=== PATIENT | male | born 1965 | race Caucasian/White ===

== ENCOUNTER 2018-03-29 01:19 | Emergency (ER) | payer BC ==
[2018-03-29 01:40] VITALS: RESP 18
[2018-03-29] MEDS ORDERED: AMOXIC-POT CLAV 875MG STARTER 2 EACH TABLET PO STA (01:59)
[2018-03-29] MEDS ORDERED: KETOROLAC 30 MG/ML 1 ML VIAL IM STA (01:59)
[2018-03-29] MEDS ORDERED: LISINOPRIL 10 MG TAB PO STA (02:01)
--- NOTE | 2018-03-29 02:03 | ED ---
ENT HPI - General Chief complaint: ENT Stated complaint: Ear pain Time Seen by Provider: 03/29/18 01:51 Source: patient Mode of arrival: ambulatory Limitations: no limitations - History of Present Illness Initial comments: 52-year-old male patient presents the emergency department today for evaluation of right ear pain. Patient states he has been sick with nasal congestion and sinus pressure for the last week. Patient states that he has been blowing his nose and his ear is been popping. He states that this afternoon he developed severe right ear pain. Patient states that the pain has not gone away. He denies any drainage from the ear. Denies any fevers or chills. Denies any cough. Denies any problems with ear infections in the past. Patient denies any recent rash, shortness breath, chest pain, abdominal pain, nausea, vomiting, diarrhea, constipation, back pain, numbness, tingling, dizziness, weakness, hematuria, dysuria, urinary urgency, urinary frequency, headache, visual changes , or any other complaints. - Related Data Previous Rx's Medication Instructions Recorded Amoxic-Pot Clav 875-125Mg 1 tab PO Q12HR #20 tablet 03/29/18 [Augmentin 875-125] Ibuprofen [Motrin] 600 mg PO Q8HR PRN #30 tab 03/29/18 Lisinopril [Prinivil] 10 mg PO DAILY #30 tab 03/29/18 Allergies Allergy/AdvReac Type Severity Reaction Status Date / Time No Known Allergies Allergy Verified 03/29/18 01:40 Review of Systems ROS Statement: Those systems with pertinent positive or pertinent negative responses have been documented in the HPI. ROS Other: All systems not noted in ROS Statement are negative. Past Medical History Past Medical History: Hyperlipidemia, Hypertension History of Any Multi-Drug Resistant Organisms: None Reported Past Surgical History: No Surgical Hx Reported Past Psychological History: No Psychological Hx Reported Smoking Status: Never smoker Past Alcohol Use History: Occasional Past Drug Use History: None Reported General Exam Limitations: no limitations General appearance: alert, in no apparent distress, other (This is a well- developed, well-nourished adult male patient in no acute distress. Vital signs upon presentation are temperature 98.0F, pulse 98, respirations 18, blood pressure 164/109, pulse ox 97% on room air.) Eye exam: Present: normal appearance, PERRL, EOMI. Absent: scleral icterus, conjunctival injection, periorbital swelling ENT exam: Present: normal exam, normal oropharynx, mucous membranes moist, normal external ear exam, other (No mastoid tenderness). Absent: TM's normal bilaterally (Right tympanic membrane is bulging, erythematous, presence of effusion. Left tympanic membrane is normal.) Neck exam: Present: normal inspection. Absent: tenderness, meningismus, lymphadenopathy Respiratory exam: Present: normal lung sounds bilaterally. Absent: respiratory distress, wheezes, rales, rhonchi, stridor Cardiovascular Exam: Present: regular rate, normal rhythm, normal heart sounds. Absent: systolic murmur, diastolic murmur, rubs, gallop, clicks Neurological exam: Present: alert, oriented X3, CN II-XII intact Psychiatric exam: Present: normal affect, normal mood Skin exam: Present: warm, dry, intact, normal color. Absent: rash Course Vital Signs 03/29/18 03/29/18 01:37 02:38 Temperature 98.0 F 98.1 F Pulse Rate 98 81 Respiratory 18 18 Rate Blood Pressure 164/109 154/94 O2 Sat by Pulse 97 97 Oximetry Medical Decision Making - Medical Decision Making 52-year-old male patient presents the emergency department today for evaluation of right ear pain. Physical examination did reveal a bulging erythematous tympanic membrane with presence of effusion. No mastoid tenderness. No lymphadenopathy. Patient's blood pressure elevated while in the department, states his been out of his blood pressure medication for the last few weeks. He is unsure which medication he took. Patient will be discharged home with diagnosis of right otitis media and hypertension. Be given a prescription for Augmentin and lisinopril. Is instructed to follow-up with his primary care physician for recheck as soon as possible. He is instructed to monitor his blood pressure. Return parameters were discussed in detail. He verbalizes understanding and agrees with this plan. Disposition Clinical Impression: Right otitis media with effusion, Hypertension Disposition: HOME SELF-CARE Condition: Good Instructions: Otitis Media (ED), Hypertension (ED) Additional Instructions: Apply warm compresses to the right ear. Complete antibiotic prescription and full. Use pain medication as directed. Follow-up with your primary care physician for recheck in 1-2 days. Return here immediately for any new, worsening, or concerning symptoms. Prescriptions: Amoxic-Pot Clav 875-125Mg [Augmentin 875-125] 1 tab PO Q12HR #20 tablet Ibuprofen [Motrin] 600 mg PO Q8HR PRN #30 tab PRN Reason: Pain Lisinopril [Prinivil] 10 mg PO DAILY #30 tab Is patient prescribed a controlled substance at d/c from ED?: No Referrals: Jelly Osborne DO [Primary Care Provider] - 1-2 days Time of Disposition: 02:03
[2018-03-29 02:41] VITALS: BP 154/94; PULSE 81; TEMP 98.1
== END 2018-03-29 02:41 | disposition home or self-care (01) ==
LOC: EC 01:19
DX: H65.91 Unspecified nonsuppurative otitis media, right ear (principal); I10 Essential (primary) hypertension
CPT/HCPCS: 99282; 96372; J1885

== ENCOUNTER 2020-12-08 18:27 | Emergency (ER) | payer BC ==
[2020-12-08 18:34] VITALS: RESP 18
[2020-12-08] MEDS ORDERED: ACETAMINOPHEN TAB 500 MG TAB PO STA (20:43)
--- NOTE | 2020-12-08 21:18 | ED ---
General Adult HPI - General Chief complaint: Fever Stated complaint: Fever, SOB, Syncope Time Seen by Provider: 12/08/20 20:43 Source: patient Mode of arrival: wheelchair Limitations: no limitations - History of Present Illness Initial comments: Dictation was produced using [employer] dictation software. please excuse any grammatical, word or spelling errors. This patient was cared for during a federal and state declared state of emergency secondary to Covid 19 Chief Complaint: 55-year-old male presents with fever, body aches, chest co ngestion for 5 days History of Present Illness: 55-year-old male who presents with URI symptoms thiago oing for the last 5 days. He is tested for coronavirus twice. He states that his initial test was negative. He had another test performed however has not got the results were. Patient complaining of 5 days of cough, congestion, shortness of breath. States he also has muscle aches. Patient has history of dyslipidemia and hypertension. He states he does not take any medications for this consult does not need them anymore. The ROS documented in this emergency department record has been reviewed and confirmed by me. Those systems with pertinent positive or negative responses have been documented in the HPI. All other systems are other negative and/or noncontributory. PHYSICAL EXAM: General Impression: Alert and oriented x3, not in acute distress HEENT: Normocephalic atraumatic, extra-ocular movements intact, pupils equal and reactive to light bilaterally, mucous membranes moist. Cardiovascular: Heart regular rate and rhythm Chest: Able to complete full sentences, no retractions, no tachypnea, bilateral breath sounds Abdomen: abdomen soft, non-tender, non-distended, no organomegaly Musculoskeletal: Pulses present and equal in all extremities, no peripheral edema Motor: no focal deficits noted Neurological: CN II-XII grossly intact, no focal motor or sensory deficits noted Skin: Intact with no visualized rashes Psych: Normal affect and mood ED course: 55-year-old male presents with respiratory infectious symptoms. Vital signs upon arrival shows temperature 103.1, heart rate of 102, rest of vital signs within acceptable limits. Laboratory evaluation obtained. CBC, metabolic panel is within acceptable limits. The covid 19 test is positive. Chest x-ray shows bilateral infiltrates. Clinical presentation consistent with Covid 19. Patient is not hypoxic. Patient qualifies for monoclonal antibodies. he consented to monoclonal antibody treatment. Patient given infusion. Tolerated infusion well. Patient observed in emergency department for one hour after infusion with no issues. Patient be discharged. - Related Data Home Medications Medication Instructions Recorded Confirmed Acetaminophen Tab [Tylenol] 650 mg PO Q4H PRN 12/08/20 12/08/20 Allergies Allergy/AdvReac Type Severity Reaction Status Date / Time No Known Allergies Allergy Verified 12/08/20 21:51 Review of Systems ROS Statement: Those systems with pertinent positive or pertinent negative responses have been documented in the HPI. ROS Other: All systems not noted in ROS Statement are negative. Past Medical History Past Medical History: Hyperlipidemia, Hypertension History of Any Multi-Drug Resistant Organisms: None Reported Past Surgical History: No Surgical Hx Reported Past Psychological History: No Psychological Hx Reported Smoking Status: Never smoker Past Alcohol Use History: Occasional Past Drug Use History: None Reported General Exam Limitations: no limitations Course Vital Signs 12/08/20 12/08/20 18:32 23:00 Temperature 103.1 F H 99.0 F Pulse Rate 102 H 88 Respiratory 18 18 Rate Blood Pressure 114/73 115/71 O2 Sat by Pulse 95 97 Oximetry Medical Decision Making - Lab Data Result diagrams: 12/08/20 21:32 12/08/20 21:32 Lab Results 12/08/20 12/08/20 12/08/20 Range/Units 21:06 21:32 21:32 WBC 5.1 (3.8-10.6) k/uL RBC 5.02 (4.30-5.90) m/uL Hgb 15.0 (13.0-17.5) gm/dL Hct 45.1 (39.0-53.0) % MCV 89.9 (80.0-100.0) fL MCH 29.9 (25.0-35.0) pg MCHC 33.3 (31.0-37.0) g/dL RDW 13.5 (11.5-15.5) % Plt Count 188 (150-450) k/uL MPV 7.3 Neutrophils % 85 % Lymphocytes % 8 % Monocytes % 5 % Eosinophils % 1 % Basophils % 0 % Neutrophils # 4.4 (1.3-7.7) k/uL Lymphocytes # 0.4 L (1.0-4.8) k/uL Monocytes # 0.3 (0-1.0) k/uL Eosinophils # 0.0 (0-0.7) k/uL Basophils # 0.0 (0-0.2) k/uL Sodium 132 L (137-145) mmol/L Potassium 4.1 (3.5-5.1) mmol/L Chloride 97 L (98-107) mmol/L Carbon Dioxide 25 (22-30) mmol/L Anion Gap 10 mmol/L BUN 18 (9-20) mg/dL Creatinine 1.06 (0.66-1.25) mg/dL Est GFR (CKD-EPI)AfAm >90 (>60 ml/min/1.73 sqM) Est GFR (CKD-EPI)NonAf 80 (>60 ml/min/1.73 sqM) Glucose 155 H (74-99) mg/dL Calcium 8.6 (8.4-10.2) mg/dL Coronavirus (PCR) Detected A (Not Detectd) Disposition Clinical Impression: COVID-19 Disposition: HOME SELF-CARE Condition: Fair Instructions (If sedation given, give patient instructions): Viral Pneumonia (ED) Additional Instructions: Today you were evaluated for symptoms consistent with upper respiratory infec tion. Today you tested positive for Covid 19. Your are stable for discharge, however it is instructed to to seek immediate medical attention especially if you develop worsening symptoms especially respiratory distress. If possible, try to obtain a pulse oximeter and monitor your oxygen at home. In the meantime please remain in quarantine for 14 days. For any other questions please contact Janelle for here in emergency department or [facility] at [phone] Is patient prescribed a controlled substance at d/c from ED?: No Referrals: Jelly Osborne DO [Primary Care Provider] - 1-2 days Time of Disposition: 22:53
[2020-12-08 21:44] LABS: Basophils % (A) 0 %; Eosinophils % (A) 1 %; HCT 45.1 % (39.0-53.0); Lymphocytes # (A) 0.4 k/uL (1.0-4.8); Lymphocytes % (A) 8 %; MCH 29.9 pg (25.0-35.0); MCHC 33.3 g/dL (31.0-37.0); MCV 89.9 fL (80.0-100.0); Mean Platelet Volume 7.3; Monocytes # (A) 0.3 k/uL (0-1.0); Monocytes % (A) 5 %; Neutrophils # (A) 4.4 k/uL (1.3-7.7); Neutrophils % (A) 85 %; Platelet Count 188 k/uL (150-450); RBC 5.02 m/uL (4.30-5.90); RDW 13.5 % (11.5-15.5); WBC 5.1 k/uL (3.8-10.6)
[2020-12-08 21:48] LABS: African American GFR (CKD) >90 (>60 ml/min/1.73 sqM); Anion Gap 10 mmol/L; Blood Urea Nitrogen 18 mg/dL (9-20); Calcium 8.6 mg/dL (8.4-10.2); Carbon Dioxide 25 mmol/L (22-30); Chloride 97 mmol/L (98-107); Glucose 155 mg/dL (74-99); Non-African American GFR(CKD) 80 (>60 ml/min/1.73 sqM); Potassium 4.1 mmol/L (3.5-5.1); Sodium 132 mmol/L (137-145)
--- NOTE | 2020-12-08 21:50 | XR ---
EXAMINATION TYPE: XR chest 1V portable DATE OF EXAM: 12/08/2020 COMPARISON: NONE HISTORY: Shortness of breath and fever. TECHNIQUE: Single frontal view of the chest is obtained. FINDINGS: There is bilateral moderate perihilar and bibasilar patchy airspace. No pleural effusion, or pneumothorax seen. The cardiac silhouette size is within normal limits. The osseous structures are intact. IMPRESSION: Bilateral infiltrates.
[2020-12-08] MEDS ORDERED: BAMLANIVIMAB 700 MG in SODIUM CHLORIDE 0.9% 50 ML IVPB ONE (22:30)
[2020-12-08 23:02] VITALS: BP 115/71; PULSE 88; TEMP 99
== END 2020-12-09 00:15 | disposition home or self-care (01) ==
LOC: EC 18:27
DX: U07.1 COVID-19 (principal); E78.5 Hyperlipidemia, unspecified; I10 Essential (primary) hypertension
CPT/HCPCS: 36415; 80048; 85025; 87635; 71045; 99285; 96374; Q0239

== ENCOUNTER 2020-12-10 09:30 | Inpatient (IN) | payer BC ==
[2020-12-10] MEDS ORDERED: ALBUTEROL HFA INHALER INHALATION STA (09:59)
[2020-12-10] MEDS ORDERED: ACETAMINOPHEN TAB 500 MG TAB PO STA (09:59)
[2020-12-10] MEDS ORDERED: SODIUM CHLORIDE 0.9% 1,000 ML IV ONE (10:03)
--- NOTE | 2020-12-10 10:08 | ED ---
General Adult HPI - General Chief complaint: Upper Respiratory Infection Stated complaint: COVID+,Fever,SOB Time Seen by Provider: 12/10/20 09:40 Source: patient, RN notes reviewed, old records reviewed Mode of arrival: ambulatory Limitations: no limitations - History of Present Illness Initial comments: Patient's 55-year-old male presents emergency department today for evaluation of shortness of breath, coughing and persistent fever. Patient is Postive with COVID infection on 12/08/2020. He did receive BAM. Patient reports that he has had approximately one week of symptoms. Patient states that there is worsening shortness of breath. He reports poor appetite. - Related Data Home Medications Medication Instructions Recorded Confirmed Acetaminophen Tab [Tylenol] 650 mg PO Q4H PRN 12/08/20 12/10/20 Ibuprofen [Motrin Ib] 400 mg PO Q8H PRN 12/10/20 12/10/20 Allergies Allergy/AdvReac Type Severity Reaction Status Date / Time No Known Allergies Allergy Verified 12/10/20 11:58 Review of Systems ROS Statement: Those systems with pertinent positive or pertinent negative responses have been documented in the HPI. ROS Other: All systems not noted in ROS Statement are negative. Past Medical History Past Medical History: Hyperlipidemia, Hypertension History of Any Multi-Drug Resistant Organisms: None Reported Past Surgical History: No Surgical Hx Reported Past Psychological History: No Psychological Hx Reported Smoking Status: Never smoker Past Alcohol Use History: Occasional Past Drug Use History: None Reported General Exam - General Exam Comments Initial Comments: Weak 55-year-old male. Limitations: no limitations General appearance: alert, in no apparent distress Head exam: Present: atraumatic, normocephalic, normal inspection Eye exam: Present: normal appearance, PERRL, EOMI. Absent: scleral icterus, conjunctival injection, periorbital swelling ENT exam: Present: normal exam, mucous membranes moist Neck exam: Present: normal inspection. Absent: tenderness, meningismus, lymphadenopathy Respiratory exam: Present: decreased breath sounds. Absent: normal lung sounds bilaterally, respiratory distress, wheezes, rales, rhonchi, stridor Cardiovascular Exam: Present: normal rhythm, normal heart sounds. Absent: regular rate, systolic murmur, diastolic murmur, rubs, gallop, clicks GI/Abdominal exam: Present: soft Back exam: Present: normal inspection Neurological exam: Present: alert, oriented X3, CN II-XII intact Psychiatric exam: Present: normal affect, normal mood Skin exam: Present: warm, dry, intact, normal color. Absent: rash Course Vital Signs 12/10/20 12/10/20 12/10/20 09:33 11:00 11:35 Temperature 100.0 F H Pulse Rate 98 78 Respiratory 18 20 Rate Blood Pressure 92/60 97/69 O2 Sat by Pulse 87 L 95 95 Oximetry 12/10/20 12/10/20 12/10/20 12:00 13:00 13:02 Temperature 98.4 F Pulse Rate 70 78 71 Respiratory 21 24 18 Rate Blood Pressure 114/72 121/79 115/77 O2 Sat by Pulse 93 L 95 94 L Oximetry Medical Decision Making - Medical Decision Making This is a 55-year-old male presents today for concern for worsening shortness of breath persistent fever for the past week. He did test positive for cocaine. 19 infection on and received BAM. At this time Patient has hypoxia with oxygen saturation was 87% on room air. He is placed on 5 L of oxygen and is now satting 93%. He does have elevated lactic acid and and d-dimer. His x- ray shows worsening pulmonary infiltrates. Patient was started on IV steroids, started on Lovenox for elevated d-dimer as well as Rocephin for increased pulmonary infiltrates. Patient at this time will be admitted for Covid 19 pneumonia and hypoxia and weakness. Discussed case with Dr. Paulson, whom discussed case with Dr. Pedraza. - Lab Data Result diagrams: 12/10/20 10:13 12/10/20 10:13 Lab Results 12/10/20 12/10/20 12/10/20 Range/Units 10:13 10:13 10:13 WBC 5.4 (3.8-10.6) k/uL RBC 4.96 (4.30-5.90) m/uL Hgb 15.3 (13.0-17.5) gm/dL Hct 44.2 (39.0-53.0) % MCV 89.1 (80.0-100.0) fL MCH 30.9 (25.0-35.0) pg MCHC 34.7 (31.0-37.0) g/dL RDW 13.1 (11.5-15.5) % Plt Count 229 (150-450) k/uL MPV 7.3 Neutrophils % 82 % Lymphocytes % 12 % Monocytes % 4 % Eosinophils % 0 % Basophils % 0 % Neutrophils # 4.4 (1.3-7.7) k/uL Lymphocytes # 0.7 L (1.0-4.8) k/uL Monocytes # 0.2 (0-1.0) k/uL Eosinophils # 0.0 (0-0.7) k/uL Basophils # 0.0 (0-0.2) k/uL PT 9.9 (9.0-12.0) sec INR 0.9 (<1.2) APTT 24.2 (22.0-30.0) sec D-Dimer 2.69 H (<0.60) mg/L FEU Sodium 137 (137-145) mmol/L Potassium 3.8 (3.5-5.1) mmol/L Chloride 101 (98-107) mmol/L Carbon Dioxide 26 (22-30) mmol/L Anion Gap 10 mmol/L BUN 17 (9-20) mg/dL Creatinine 1.16 (0.66-1.25) mg/dL Est GFR (CKD-EPI)AfAm 83 (>60 ml/min/1.73 sqM) Est GFR (CKD-EPI)NonAf 72 (>60 ml/min/1.73 sqM) Glucose 129 H (74-99) mg/dL Plasma Lactic Acid Tan (0.7-2.0) mmol/L Calcium 8.6 (8.4-10.2) mg/dL Magnesium 2.4 H (1.6-2.3) mg/dL Total Bilirubin 0.7 (0.2-1.3) mg/dL AST 81 H (17-59) U/L ALT 34 (4-49) U/L Alkaline Phosphatase 60 (38-126) U/L Lactate Dehydrogenase 1965 H (313-618) U/L C-Reactive Protein 242.5 H (<10.0) mg/L Total Protein 6.5 (6.3-8.2) g/dL Albumin 3.9 (3.5-5.0) g/dL 12/10/20 Range/Units 10:13 WBC (3.8-10.6) k/uL RBC (4.30-5.90) m/uL Hgb (13.0-17.5) gm/dL Hct (39.0-53.0) % MCV (80.0-100.0) fL MCH (25.0-35.0) pg MCHC (31.0-37.0) g/dL RDW (11.5-15.5) % Plt Count (150-450) k/uL MPV Neutrophils % % Lymphocytes % % Monocytes % % Eosinophils % % Basophils % % Neutrophils # (1.3-7.7) k/uL Lymphocytes # (1.0-4.8) k/uL Monocytes # (0-1.0) k/uL Eosinophils # (0-0.7) k/uL Basophils # (0-0.2) k/uL PT (9.0-12.0) sec INR (<1.2) APTT (22.0-30.0) sec D-Dimer (<0.60) mg/L FEU Sodium (137-145) mmol/L Potassium (3.5-5.1) mmol/L Chloride (98-107) mmol/L Carbon Dioxide (22-30) mmol/L Anion Gap mmol/L BUN (9-20) mg/dL Creatinine (0.66-1.25) mg/dL Est GFR (CKD-EPI)AfAm (>60 ml/min/1.73 sqM) Est GFR (CKD-EPI)NonAf (>60 ml/min/1.73 sqM) Glucose (74-99) mg/dL Plasma Lactic Acid Tan 1.2 (0.7-2.0) mmol/L Calcium (8.4-10.2) mg/dL Magnesium (1.6-2.3) mg/dL Total Bilirubin (0.2-1.3) mg/dL AST (17-59) U/L ALT (4-49) U/L Alkaline Phosphatase (38-126) U/L Lactate Dehydrogenase (313-618) U/L C-Reactive Protein (<10.0) mg/L Total Protein (6.3-8.2) g/dL Albumin (3.5-5.0) g/dL - Radiology Data Radiology results: report reviewed Patchy bilateral infiltrates appear to progress in the interval. Findings are compatible with covid 19 pneumonia. Disposition Clinical Impression: COVID-19, Pneumonia, Weakness, Hypoxia Disposition: ADMITTED IP TO THIS HOSP Condition: Stable Is patient prescribed a controlled substance at d/c from ED?: No Referrals: Jelly Osborne DO [Primary Care Provider] - 1-2 days Time of Disposition: 13:12
[2020-12-10] MEDS: SODIUM CHLORIDE 0.9% 1,000 ML IV SCH ×2 (10:19→20:16)
[2020-12-10 10:25] LABS: Basophils % (A) 0 %; Eosinophils % (A) 0 %; HCT 44.2 % (39.0-53.0); HGB 15.3 gm/dL (13.0-17.5); Lymphocytes # (A) 0.7 k/uL (1.0-4.8); Lymphocytes % (A) 12 %; MCH 30.9 pg (25.0-35.0); MCHC 34.7 g/dL (31.0-37.0); MCV 89.1 fL (80.0-100.0); Mean Platelet Volume 7.3; Monocytes # (A) 0.2 k/uL (0-1.0); Monocytes % (A) 4 %; Neutrophils # (A) 4.4 k/uL (1.3-7.7); Neutrophils % (A) 82 %; Platelet Count 229 k/uL (150-450); RBC 4.96 m/uL (4.30-5.90); RDW 13.1 % (11.5-15.5); WBC 5.4 k/uL (3.8-10.6)
--- NOTE | 2020-12-10 10:32 | XR ---
EXAMINATION TYPE: XR chest 1V portable DATE OF EXAM: 12/10/2020 HISTORY: Shortness of breath. COMPARISON: 12/08/2020 TECHNIQUE: Single view of the chest is submitted. FINDINGS: Demonstrated are scattered senescent parenchymal change. Patchy bilateral airspace infiltrates appear to have progressed in the interval. The findings are com patible with Covid 19 pneumonia. The heart is stable. Hilar and mediastinal structures are within normal limits. Degenerative changes are seen of the dorsal spine. IMPRESSION: 1. Patchy bilateral airspace infiltrates appear to have progressed in the interval. The findings are compatible with Covid 19 pneumonia.
[2020-12-10 10:35] LABS: Albumin 3.9 g/dL (3.5-5.0); Calcium 8.6 mg/dL (8.4-10.2); Magnesium 2.4 mg/dL (1.6-2.3); Potassium 3.8 mmol/L (3.5-5.1); Total Bilirubin 0.7 mg/dL (0.2-1.3); Total Protein 6.5 g/dL (6.3-8.2)
[2020-12-10 10:43] LABS: INR 0.9 (<1.2); Partial Thromboplastin Time 24.2 sec (22.0-30.0); Prothrombin Time 9.9 sec (9.0-12.0)
[2020-12-10 10:46] LABS: C Reactive Protein 242.5 mg/L (<10.0)
[2020-12-10 11:08] LABS: D-Dimer 2.69 mg/L FEU (<0.60)
[2020-12-10] MEDS ORDERED: ACETAMINOPHEN TAB 500 MG TAB PO PRN (12:26)
[2020-12-10] MEDS ORDERED: cefTRIAXone IN SWFI 1,000 MG/10 ML SYRINGE IVP STA (12:45)
[2020-12-10] MEDS ORDERED: DEXAMETHASONE SOD PHOSPHATE 10 MG/ML 1 ML VIAL IV STA (13:09)
[2020-12-10] MEDS ORDERED: NALOXONE 0.4 MG/ML 1 ML VIAL IV PRN (13:13)
[2020-12-10] MEDS ORDERED: IBUPROFEN 400 MG TAB PO PRN (13:13)
[2020-12-10] MEDS ORDERED: ONDANSETRON 4 MG/2 ML VIAL IVP PRN (13:13)
[2020-12-10] MEDS ORDERED: ACETAMINOPHEN TAB 325 MG TAB PO PRN (13:13)
[2020-12-10] MEDS: DEXAMETHASONE SOD PHOSPHATE 10 MG/ML 1 ML VIAL IV SCH (13:41)
[2020-12-10] MEDS: ENOXAPARIN 40 MG/0.4 ML SYRINGE SQ SCH (13:42)
--- NOTE | 2020-12-10 13:59 | CT ---
EXAMINATION TYPE: CT chest angio for PE DATE OF EXAM: 12/10/2020 COMPARISON: None HISTORY: COVID, not improved from last week, cough CT DLP: 319.9 mGycm CONTRAST: CT chest with contrast and 3D reconstruction with MIP imaging is performed with IV Contrast, patient injected with 100 mL of Isovue 370. Contrast-enhanced CT of the chest was performed through the course of the pulmonary arteries with aaliyah g and mediastinal window settings submitted. 3D reconstruction with MIP imaging was also performed. PULMONARY ARTERIES: The pulmonary arteries and their major tributaries are patent. I do not see vee dence for sizable filling defect to suggest pulmonary embolic process. LUNGS: Moderate to severe bilateral airspace disease. No evidence for atelectasis. No pulmonary nod ule or mass is detected. No pleural effusion. MEDIASTINUM: Thoracic aorta is of normal caliber,however, evaluation is limited given timing of the contrast bolus. If there is concern for thoracic aortic pathology consider KEITH. Correlate clinicall y . The heart is not enlarged. No evidence for mediastinal mass. No mediastinal lymph nodes greater than 1cm. HILAR STRUCTURES: No evidence for mass. No hilar lymph nodes greater than 1 cm. UPPER ABDOMEN: No significant abnormality is seen. IMPRESSION: 1. No evidence for Pulmonary embolism at this time. 2. oderate to severe bilateral airspace disease.
--- NOTE | 2020-12-10 15:08 | P.CNPUL ---
History of Present Illness Consult date: 12/10/20 Reason for consult: dyspnea, pneumonia History of present illness: 55-year-old male patient was hospitalized for COVID 19 related pneumonia. The patient started getting symptoms approximately a week ago, exactly last Saturday when he started having some body aches and tiredness and some shortness of breath. He came in to the emergency department on 12/08/2020 and he tested positive for occult at 19 and the patient was given monoclonal antibodies and he was discharged home. His condition progressively got more short of breath and he came into the emergency today he was hypoxic and currently is on 4 L about 2 by nasal cannula. He CAT scan of the chest was done and shows diffuse bilateral pulmonary consolidation consistent with COVID 19 related pneumonia. He is having cough. His shortness of breath. No altered mentation. No nausea or vomiting. Inflammatory markers revealed an LDH level 1965 and the patient's CRP is 242 and a d-dimer is at 2.6. CBC shows lymphopenia. Otherwise no other major abnormalities noted. For now, the patient is started on steroids. No other medical problems and comorbidities other than hypertension. Slightly obese and the BMI is 35.4. Review of Systems Constitutional: Reports fatigue, Reports fever, Reports weakness Eyes: denies as per HPI, denies blurred vision, denies bulging eye, denies decreased vision, denies diplopia, denies discharge, denies dry eye, denies irritation, denies itching, denies pain, denies photophobia, denies loss of peripheral vision, denies loss of vision, denies tunnel vision/blind spots Ears: deny: decreased hearing, ear discharge, earache, tinnitus Ears, nose, mouth and throat: Reports as per HPI Breasts: absent: as per HPI, gynecomastia Cardiovascular: Reports decreased exercise tolerance, Reports dyspnea on exertion Respiratory: Reports cough, Reports dyspnea Gastrointestinal: Reports as per HPI Genitourinary: Reports as per HPI Musculoskeletal: Reports as per HPI Musculoskeletal: absent: ankle pain, ankle stiffness, ankle swelling, as per HPI, elbow pain, elbow stiffness, elbow swelling, foot pain, foot stiffness, foot swelling, hand pain, hand stiffness, hand swelling, hip pain, hip stiffness, hip swelling, knee pain, knee stiffness, knee swelling, shoulder pain, shoulder stiffness, shoulder swelling, wrist pain, wrist stiffness, wrist swelling Integumentary: Reports as per HPI Neurological: Reports as per HPI, Reports weakness Psychiatric: Reports as per HPI Endocrine: Reports as per HPI, Reports fatigue Hematologic/Lymphatic: Reports as per HPI Allergic/Immunologic: Reports as per HPI Past Medical History Past Medical History: Hyperlipidemia, Hypertension History of Any Multi-Drug Resistant Organisms: None Reported Past Surgical History: No Surgical Hx Reported Past Psychological History: No Psychological Hx Reported Smoking Status: Never smoker Past Alcohol Use History: Occasional Past Drug Use History: None Reported Medications and Allergies Home Medications Medication Instructions Recorded Confirmed Type Acetaminophen Tab [Tylenol] 650 mg PO Q4H PRN 12/08/20 12/10/20 History Ibuprofen [Motrin Ib] 400 mg PO Q8H PRN 12/10/20 12/10/20 History Allergies Allergy/AdvReac Type Severity Reaction Status Date / Time No Known Allergies Allergy Verified 12/10/20 11:58 Physical Exam Vitals: Vital Signs Temp Pulse Resp BP Pulse Ox 12/10/20 14:00 98.6 F 74 22 115/77 94 L 12/10/20 13:02 98.4 F 71 18 115/77 94 L 12/10/20 13:00 78 24 121/79 95 12/10/20 12:00 70 21 114/72 93 L 12/10/20 11:35 95 12/10/20 11:00 78 20 97/69 95 12/10/20 09:33 100.0 F H 98 18 92/60 87 L Intake and Output 12/10/20 12/10/20 12/10/20 06:59 14:59 22:59 Other: Weight 90.718 kg The patient appeared well nourished and normally developed. Vital signs as documented. Head exam is unremarkable. No scleral icterus or corneal arcus noted. Neck is without jugular venous distension, thyromegaly, or carotid bruits. Carotid upstrokes are brisk bilaterally. Lungs diminished breath sound a long with extensive crackles in the mid and lower lung nguyen bilaterally. The patient is unable to do deep inspiration as his breathing gets interrupted by cough and. Cardiac exam reveals the PMI to be normally sized and situated. Rhythm is regular. First and second heart sounds normal. No murmurs, rubs or gallops. Abdominal exam reveals normal bowel sounds, no masses, no organomegaly and no aortic enlargement. Extremities are nonedematous and both femoral and pedal pulses are normal.Examination of the skin revealed no evidence of significant rashes, suspicious appearing nevi or other concerning lesions.Neurologically, the patient is awake and alert and the patient does not have any focal neurological deficit. Cranial nerves are essentially intact. Results - Laboratory Findings CBC and BMP: 12/10/20 10:13 12/10/20 10:13 PT/INR, D-dimer PT 9.9 sec (9.0-12.0) 12/10/20 10:13 INR 0.9 (<1.2) 12/10/20 10:13 D-Dimer 2.69 mg/L FEU (<0.60) H 12/10/20 10:13 Abnormal lab findings: Abnormal Labs 12/10/20 12/10/20 12/10/20 10:13 10:13 10:13 Lymphocytes # 0.7 L D-Dimer 2.69 H Glucose 129 H Magnesium 2.4 H AST 81 H Lactate Dehydrogenase 1965 H C-Reactive Protein 242.5 H - Diagnostic Findings Chest x-ray: image reviewed CT scan - chest: image reviewed Assessment and Plan Plan: 1 acute COVID 19 related pneumonia. The patient came symptomatic approximately one week ago. His symptoms started on 12/04/2020. He was diagnosed having infection on 12/08/2020 and he was seen in emergency where he was given monoclonal anti-bodies and he was discharged home. Within 2 days, his condition decompensated and he presented with worsening shortness of breath 2 acute hypoxic respiratory failure currently on 4 L approximately nasal cannula 3 shortness of breath secondary to above 4 elevated inflammatory markers secondary to above 5 lymphopenia secondary to above 6 hypertension Plan Keep the patient on oxygen 4 L per nasal cannula and titrate accordingly to maintain a saturation above 90% Decadron 6 mg by mouth daily Initiate Remdesivir per protocol for a total of 5 days Lovenox 40 mg subcu for DVT prophylaxis Vitamin C and vitamin D and zinc Will hospitalize the patient will continue to monitor his progress over the next few days.
[2020-12-10] MEDS: CHOLECALCIFEROL 25 MCG (1000 IU) TABLET PO SCH (15:49)
[2020-12-10] MEDS: ZINC SULFATE 220 MG CAP PO SCH (15:49)
[2020-12-10] MEDS ORDERED: REMDESIVIR 200 MG in SODIUM CHLORIDE 0.9% 250 ML IVPB ONE (16:00)
[2020-12-10 20:03] LABS: Ferritin 2518.5 ng/mL (22.0-322.0)
--- NOTE | 2020-12-10 23:34 | P.HPIM ---
History of Present Illness H&P Date: 12/10/20 Chief Complaint: COVID PNEUMONIA Mr. Clements is a 55-year-old male with a past medical history of hypertension, hyperlipidemia coming into the hospital with a chief complaint of shortness of breath cough and persistent fevers. Patient had been in the emergency [facility] on 12/08/2020 for URI-like symptoms and he was tested positive for coronavirus twice. He had a chest x-ray showing bilateral infiltrates and he was not hypoxic so he received monoclonal antibodies and discharged home. But patient had persistent fevers along with sweating that progressively worsening he also became extremely short of breath. In the ED at the time of admission he was found to have a fever of 100.0, heart rate 98, blood pressure 92/60 and saturating at 87% on room air. So the patient was admitted for further management. On reviewing his labs patient was found to have white count of 5.4 with lymphopenia and D-dimer of 2.69 and elevated ferritin 2518, LDH 1965, CRP 242. Review of Systems REVIEW OF SYSTEMS: CONSTITUTIONAL: As per HPI HEENT: No recent visual problems or hearing problems. Denied any sore throat. CARDIOVASCULAR: No chest pain, orthopnea, PND, no palpitations, no syncope. PULMONARY: As per HPI GASTROINTESTINAL: No diarrhea, no nausea, no vomiting, no abdominal pain. NEUROLOGICAL: Mild headaches, no weakness, no numbness. HEMATOLOGICAL: Denies any bleeding or petechiae. GENITOURINARY: Denies any burning micturition, frequency, or urgency. MUSCULOSKELETAL/RHEUMATOLOGICAL: As per HPI. ENDOCRINE: Denies any polyuria or polydipsia. The rest of the 14-point review of systems is negative Past Medical History Past Medical History: Hyperlipidemia, Hypertension History of Any Multi-Drug Resistant Organisms: None Reported Past Surgical History: No Surgical Hx Reported Past Psychological History: No Psychological Hx Reported Smoking Status: Never smoker Past Alcohol Use History: Occasional Past Drug Use History: None Reported - Past Family History Father Family Medical History: Cancer, Myocardial Infarction (CT) Mother Additional Family Medical History / Comment(s): emphysema Medications and Allergies Home Medications Medication Instructions Recorded Confirmed Type Acetaminophen Tab [Tylenol] 650 mg PO Q4H PRN 12/08/20 12/10/20 History Ibuprofen [Motrin Ib] 400 mg PO Q8H PRN 12/10/20 12/10/20 History Allergies Allergy/AdvReac Type Severity Reaction Status Date / Time No Known Allergies Allergy Verified 12/10/20 11:58 Physical Exam Vitals: Vital Signs Temp Pulse Resp BP Pulse Ox 12/10/20 17:24 98 F 12/10/20 17:00 98 27 H 124/80 95 12/10/20 16:00 82 25 H 117/80 94 L 12/10/20 15:00 81 27 H 121/81 94 L 12/10/20 14:00 98.6 F 74 22 115/77 94 L 12/10/20 13:02 98.4 F 71 18 115/77 94 L 12/10/20 13:00 78 24 121/79 95 12/10/20 12:00 70 21 114/72 93 L 12/10/20 11:35 95 12/10/20 11:00 78 20 97/69 95 12/10/20 09:33 100.0 F H 98 18 92/60 87 L Intake and Output 12/10/20 12/10/20 12/10/20 06:59 14:59 22:59 Other: Weight 90.718 kg PHYSICAL EXAMINATION: GENERAL: The patient is alert and oriented x3, not in any acute distress. Ill appearing, sweating HEENT: Pupils are round and equally reacting to light. EOMI. No scleral icterus. No conjunctival pallor. CARDIOVASCULAR: S1 and S2 present. Tachycardia PULMONARY: Bilatral coarse breath sounds ABDOMEN: Soft, nontender, nondistended, normoactive bowel sounds. No palpable organomegaly. MUSCULOSKELETAL: No joint swelling or deformities EXTREMITIES: No cyanosis, clubbing. No pedal edema NEUROLOGICAL: Gross neurological examination did not reveal any focal deficits. SKIN: No rashes. Results CBC & Chem 7: 12/10/20 10:13 12/10/20 10:13 Labs: Abnormal Lab Results - Last 24 Hours (Table) 12/10/20 12/10/20 12/10/20 Range/Units 10:13 10:13 10:13 Lymphocytes # 0.7 L (1.0-4.8) k/uL D-Dimer 2.69 H (<0.60) mg/L FEU Glucose 129 H (74-99) mg/dL Magnesium 2.4 H (1.6-2.3) mg/dL AST 81 H (17-59) U/L Lactate Dehydrogenase 1965 H (313-618) U/L C-Reactive Protein 242.5 H (<10.0) mg/L Assessment and Plan Assessment: ASSESSMENT Acute hypoxic respiratory failure secondary to Covid pneumonia Lymphopenia Elevated inflammatory markers Hypertension Hyperlipidemia Obesity with BMI of 35.4 PLAN: Patient has been started on remdesivir. Patient will be continued on Decadron, Lovenox for DVT prophylaxis, zinc and vitamin D supplements. Patient encouraged to do incentive spirometry. Protonix for GI prophylaxis. Further recommendations to follow depending on the progress of the patient.
[2020-12-11] MEDS: SODIUM CHLORIDE 0.9% 1,000 ML IV SCH ×2 (04:42→16:41)
--- NOTE | 2020-12-11 07:42 | XR ---
EXAMINATION TYPE: XR chest 1V portable DATE OF EXAM: 12/11/2020 HISTORY: Shortness of breath. COMPARISON: 12/10/2020 TECHNIQUE: Single view of the chest is submitted. FINDINGS: Scattered areas of patchy infiltrate left perihilar, right midlung zone and right lung base persists. No change appreciated. The heart is stable. Hilar and mediastinal structures are within normal limits. Degenerative changes are seen of the dorsal spine. IMPRESSION: 1. Scattered areas of patchy infiltrate left perihilar, right midlung zone and right lung base persi sts. No change appreciated.
[2020-12-11 08:44] LABS: C Reactive Protein 182.2 mg/L (<10.0)
[2020-12-11] MEDS ORDERED: PANTOPRAZOLE 40 MG/10 ML VIAL IV SCH (09:00)
[2020-12-11] MEDS: ENOXAPARIN 40 MG/0.4 ML SYRINGE SQ SCH (09:09)
[2020-12-11] MEDS: CHOLECALCIFEROL 25 MCG (1000 IU) TABLET PO SCH (09:09)
[2020-12-11] MEDS: ZINC SULFATE 220 MG CAP PO SCH (09:09)
[2020-12-11] MEDS: DEXAMETHASONE SOD PHOSPHATE 10 MG/ML 1 ML VIAL IV SCH (09:09)
[2020-12-11] MEDS: ASCORBIC ACID 500 MG TAB PO SCH (09:09)
--- NOTE | 2020-12-11 12:45 | P.PN ---
Subjective Progress Note Date: 12/11/20 55-year-old male patient was hospitalized for COVID 19 related pneumonia. The patient started getting symptoms approximately a week ago, exactly last Saturday when he started having some body aches and tiredness and some shortness of breath. He came in to the emergency department on 12/08/2020 and he tested positive for occult at 19 and the patient was given monoclonal antibodies and he was discharged home. His condition progressively got more short of breath and he came into the emergency today he was hypoxic and currently is on 4 L about 2 by nasal cannula. He CAT scan of the chest was done and shows diffuse bilateral pulmonary consolidation consistent with COVID 19 related pneumonia. He is having cough. His shortness of breath. No altered mentation. No nausea or vomiting. Inflammatory markers revealed an LDH level 1965 and the patient's CRP is 242 and a d-dimer is at 2.6. CBC shows lymphopenia. Otherwise no other major abnormalities noted. For now, the patient is started on steroids. No other medical problems and comorbidities other than hypertension. Slightly obese and the BMI is 35.4. Today's evaluation of 12/11/2020, the patient is being seen for a follow-up. He is still feeling sick and miserable. Note that the patient had to be admitted yesterday because of worsening shortness of breath and he still on 4 L of oxygen by nasal cannula with a pulse of 91%. He failed convalescent plasma treatment. He is currently on Decadron. He is on day 2 of Humberto. His blood work is showing a d-dimer of 1.6 and the patient on Lovenox 40 mg subcu on a daily basis. His LDH level is improving and is currently down to 1551 and a CRP level is also improving is currently down to 182. Surprisingly the pro-calcitonin level is elevated. He is afebrile. There follow-up chest x-ray was done today and I reviewed it and there is patchy scattered bilateral pulmonary infiltrates in the mid and the upper lung zones without any significant interval change. Objective - Vital Signs Vital signs: Vital Signs Temp 97.8 F 12/11/20 09:31 Pulse 85 12/11/20 09:31 Resp 20 12/11/20 09:31 BP 130/87 12/11/20 09:31 Pulse Ox 91 L 12/11/20 09:31 Intake & Output 12/10/20 12/11/20 12/11/20 18:59 06:59 18:59 Intake Total 1500 Balance 1500 Weight 90.718 kg Intake: Intake, IV Titration 1200 Amount Sodium Chloride 0.9% 1, 1200 000 ml @ 100 mls/hr IV . Q10H [facility] Rx#:[id number] Oral 300 Other: # Voids 2 - Exam The patient appeared well nourished and normally developed. Vital signs as d ocumented. Head exam is unremarkable. No scleral icterus or corneal arcus noted. Neck is without jugular venous distension, thyromegaly, or carotid bruits. Carotid upstrokes are brisk bilaterally. Lungs diminished breath sound along with extensive crackles in the mid and lower lung nguyen bilaterally. The patient is unable to do deep inspiration as his breathing gets interrupted by cough and. Cardiac exam reveals the PMI to be normally sized and situated. Rhythm is regular. First and second heart sounds normal. No murmurs, rubs or gallops. Abdominal exam reveals normal bowel sounds, no masses, no organomegaly and no aortic enlargement. Extremities are nonedematous and both femoral and pedal pulses are normal.Examination of the skin revealed no evidence of significant rashes, suspicious appearing nevi or other concerning lesions.Neurologically, the patient is awake and alert and the patient does not have any focal neurological deficit. Cranial nerves are essentially intact. - Labs CBC & Chem 7: 12/10/20 10:13 12/10/20 10:13 Labs: Abnormal Lab Results - Last 24 Hours (Table) 12/10/20 12/10/20 12/11/20 Range/Units 10:13 10:13 07:43 D-Dimer 1.62 H (<0.60) mg/L FEU Ferritin 2518.5 H (22.0-322.0) ng/mL Lactate Dehydrogenase (313-618) U/L C-Reactive Protein (<10.0) mg/L Procalcitonin 2.04 H (0.02-0.09) ng/mL 12/11/20 Range/Units 07:43 D-Dimer (<0.60) mg/L FEU Ferritin (22.0-322.0) ng/mL Lactate Dehydrogenase 1551 H (313-618) U/L C-Reactive Protein 182.2 H (<10.0) mg/L Procalcitonin (0.02-0.09) ng/mL Microbiology - Last 24 Hours (Table) 12/10/20 10:13 Blood Culture - Preliminary Blood No Growth after 24 hours 12/10/20 10:13 Blood Culture - Preliminary Blood No Growth after 24 hours Assessment and Plan Plan: 1 acute COVID 19 related pneumonia. The patient came symptomatic approximately one week ago. His symptoms started on 12/04/2020. He was diagnosed having infection on 12/08/2020 and he was seen in emergency where he was given monoclonal anti-bodies and he was discharged home. Within 2 days, his condition decompensated and he presented with worsening shortness of breath On today's evaluation, the patient is still on 4 L of oxygen by nasal cannula. The patient is still feeling sick and miserable and shortness of breath. He remains on Decadron. He is on REM day #2 2 acute hypoxic respiratory failure currently on 4 L approximately nasal cannula 3 shortness of breath secondary to above 4 elevated inflammatory markers secondary to above 5 lymphopenia secondary to above 6 hypertension Plan Keep the patient on oxygen 4 L per nasal cannula and titrate accordingly to maintain a saturation above 90% Decadron 6 mg by mouth daily Remdesivir per protocol for a total of 5 days currently on day #2 Lovenox 40 mg subcu for DVT prophylaxis Vitamin C and vitamin D and zinc Inflammatory markers are improving D-dimer is mildly elevated Chest x-ray from today stable We'll continue to follow.
[2020-12-11] MEDS: ALBUTEROL HFA INHALER INHALATION PRN (15:39)
[2020-12-11] MEDS: REMDESIVIR 100 MG in SODIUM CHLORIDE 0.9% 250 ML IVPB SCH (16:41)
--- NOTE | 2020-12-11 18:24 | P.PN ---
Subjective Progress Note Date: 12/11/20 Principal diagnosis: COVID pneumonia Mr. Clements is a 55-year-old male with a past medical history of hypertension, hyperlipidemia coming into the hospital with a chief complaint of shortness of breath cough and persistent fevers. Patient had been in the emergency [facility] on 12/08/2020 for URI-like symptoms and he was tested positive for coronavirus twice. He had a chest x-ray showing bilateral infiltrates and he was not hypoxic so he received monoclonal antibodies and discharged home. But patient had persistent fevers along with sweating that progressively worsening he also became extremely short of breath. In the ED at the time of admission he was found to have a fever of 100.0, heart rate 98, blood pressure 92/60 and saturating at 87% on room air. So the patient was admitted for further management. On reviewing his labs patient was found to have white count of 5.4 with lymphopenia and D-dimer of 2.69 and elevated ferritin 2518, LDH 1965, CRP 242. On 12/12/2019- patient is seen and examined at bedside. He states that he still continues to have exertional dyspnea. He is requiring 4-7 L of oxygen to maintain sats above 90%. Patient denies having any fevers chills or rigors. He complains of generalized weakness and fatigue. Denies having any chest pain or palpitations. No abdominal pain nausea vomiting or diarrhea. No dysuria or hematuria. On reviewing her vitals T-max of 98.6, heart rate in 80s, blood pressure 146/78. Reviewing his labs from this morning showing d-dimer of 1.62, LDH 1551, CRP 182.2. Active Medications Acetaminophen (Acetaminophen Tab 500 Mg Tab) 1,000 mg PO Q6HR PRN PRN Reason: Fever>101 Acetaminophen (Acetaminophen Tab 325 Mg Tab) 650 mg PO Q6HR PRN PRN Reason: Mild Pain or Fever > 100.5 Albuterol Sulfate (Albuterol Hfa Inhaler) 2 puff INHALATION RT-Q6H PRN PRN Reason: Shortness Of Breath Or Wheezing Last Admin: 12/11/20 15:39 Dose: 2 puff Documented by: Ascorbic Acid (Ascorbic Acid 500 Mg Tab) 1,000 mg PO DAILY [facility]ERSON Last Admin: 12/11/20 09:09 Dose: 1,000 mg Documented by: Cholecalciferol (Cholecalciferol 25 Mcg (1000 Iu) Tablet) 25 mcg PO DAILY [facility] Last Admin: 12/11/20 09:09 Dose: 25 mcg Documented by: Dexamethasone Sodium Phosphate (Dexamethasone Sod Phosphate 10 Mg/Ml 1 Ml Vial) 6 mg IV DAILY [facility] Stop: 12/20/20 09:01 Last Admin: 12/11/20 09:09 Dose: 6 mg Documented by: Enoxaparin Sodium (Enoxaparin 40 Mg/0.4 Ml Syringe) 40 mg SQ Q24HR [facility] Last Admin: 12/11/20 09:09 Dose: 40 mg Documented by: Sodium Chloride (Saline 0.9%) 1,000 mls @ 100 mls/hr IV .Q10H [facility] Last Admin: 12/11/20 16:41 Dose: 100 mls/hr Documented by: Remdesivir 100 mg/ Sodium (Chloride) 250 mls @ 250 mls/hr IVPB DAILY@1600 [facility] Stop: 12/14/20 16:59 Last Admin: 12/11/20 16:41 Dose: 250 mls/hr Documented by: Ibuprofen (Ibuprofen 400 Mg Tab) 400 mg PO Q6HR PRN PRN Reason: Mild Pain or Fever > 100.5 Naloxone HCl (Naloxone 0.4 Mg/Ml 1 Ml Vial) 0.2 mg IV Q2M PRN PRN Reason: Opioid Reversal Ondansetron HCl (Ondansetron 4 Mg/2 Ml Vial) 4 mg IVP Q8HR PRN PRN Reason: Nausea And Vomiting Pantoprazole Sodium (Pantoprazole 40 Mg Tablet) 40 mg PO [id number] [facility] Zinc Sulfate (Zinc Sulfate 220 Mg Cap) 220 mg PO DAILY [facility] Last Admin: 12/11/20 09:09 Dose: 220 mg Documented by: Objective - Vital Signs Vital signs: Vital Signs Temp 97.8 F 12/11/20 14:07 Pulse 84 12/11/20 14:07 Resp 20 12/11/20 14:07 BP 136/74 12/11/20 14:07 Pulse Ox 88 L 12/11/20 14:07 Intake & Output 12/10/20 12/11/20 12/11/20 18:59 06:59 18:59 Intake Total 1500 Balance 1500 Weight 90.718 kg Intake: Intake, IV Titration 1200 Amount Sodium Chloride 0.9% 1, 1200 000 ml @ 100 mls/hr IV . Q10H [facility] Rx#:[id number] Oral 300 Other: # Voids 2 3 # Bowel Movements 1 - Exam PHYSICAL EXAMINATION: GENERAL: The patient is alert and oriented x3, not in any acute distress. On 6 L of nasal cannula saturating at 90% HEENT: Pupils are round and equally reacting to light. EOMI. No scleral icterus. No conjunctival pallor. CARDIOVASCULAR: S1 and S2 present. PULMONARY: Bilatral coarse breath sounds ABDOMEN: Soft, nontender, nondistended, normoactive bowel sounds. No palpable organomegaly. MUSCULOSKELETAL: No joint swelling or deformities EXTREMITIES: No cyanosis, clubbing. No pedal edema NEUROLOGICAL: Gross neurological examination did not reveal any focal deficits. SKIN: No rashes. - Labs CBC & Chem 7: 12/10/20 10:13 12/10/20 10:13 Labs: Abnormal Lab Results - Last 24 Hours (Table) 12/10/20 12/10/20 12/11/20 Range/Units 10:13 10:13 07:43 D-Dimer 1.62 H (<0.60) mg/L FEU Ferritin 2518.5 H (22.0-322.0) ng/mL Lactate Dehydrogenase (313-618) U/L C-Reactive Protein (<10.0) mg/L Procalcitonin 2.04 H (0.02-0.09) ng/mL 12/11/20 Range/Units 07:43 D-Dimer (<0.60) mg/L FEU Ferritin (22.0-322.0) ng/mL Lactate Dehydrogenase 1551 H (313-618) U/L C-Reactive Protein 182.2 H (<10.0) mg/L Procalcitonin (0.02-0.09) ng/mL Microbiology - Last 24 Hours (Table) 12/10/20 10:13 Blood Culture - Preliminary Blood No Growth after 24 hours 12/10/20 10:13 Blood Culture - Preliminary Blood No Growth after 24 hours Assessment and Plan Assessment: ASSESSMENT Acute hypoxic respiratory failure secondary to Covid pneumonia - worsening Lymphopenia Elevated inflammatory markers Hypertension Hyperlipidemia Obesity with BMI of 35.4 PLAN: Patient has been started on remdesivir day # 2 today. Patient will be continued on Decadron, Lovenox for DVT prophylaxis, zinc and vitamin D supplements. Patient encouraged to do incentive spirometry. Protonix for GI prophylaxis. We will continue to monitor inflammatory markers and chest x-ray. Further recommendations to follow depending on the progress of the patient.
[2020-12-12] MEDS: SODIUM CHLORIDE 0.9% 1,000 ML IV SCH ×3 (03:09→20:51)
[2020-12-12] MEDS: DEXAMETHASONE SOD PHOSPHATE 10 MG/ML 1 ML VIAL IV SCH (09:33)
[2020-12-12] MEDS: CHOLECALCIFEROL 25 MCG (1000 IU) TABLET PO SCH (09:33)
[2020-12-12] MEDS: ZINC SULFATE 220 MG CAP PO SCH (09:33)
[2020-12-12] MEDS: PANTOPRAZOLE 40 MG TABLET PO SCH (09:33)
[2020-12-12] MEDS: ASCORBIC ACID 500 MG TAB PO SCH (09:33)
[2020-12-12] MEDS: ENOXAPARIN 40 MG/0.4 ML SYRINGE SQ SCH (09:34)
[2020-12-12] MEDS: ALBUTEROL HFA INHALER INHALATION PRN ×2 (12:28→21:17)
[2020-12-12 12:57] LABS: C Reactive Protein 8.2 mg/dL (0.0-0.8)
--- NOTE | 2020-12-12 14:11 | P.PN ---
Subjective COVID pneumonia Mr. Clements is a 55-year-old male with a past medical history of hypertension, hyperlipidemia coming into the hospital with a chief complaint of shortness of breath cough and persistent fevers. Patient had been in the emergency department on 12/08/2020 for URI-like symptoms and he was tested positive for coronavirus twice. He had a chest x-ray showing bilateral infiltrates and he was not hypoxic so he received monoclonal antibodies and discharged home. But patient had persistent fevers along with sweating that progressively worsening he also became extremely short of breath. In the ED at the time of admission he was found to have a fever of 100.0, heart rate 98, blood pressure 92/60 and saturating at 87% on room air. So the patient was admitted for further management. On reviewing his labs patient was found to have white count of 5.4 with lymphopenia and D-dimer of 2.69 and elevated ferritin 2518, LDH 1965, CRP 242. On 12/12/2019- patient is seen and examined at bedside. He states that he still continues to have exertional dyspnea. He is requiring 4-7 L of oxygen to maintain sats above 90%. Patient denies having any fevers chills or rigors. He complains of generalized weakness and fatigue. Denies having any chest pain or palpitations. No abdominal pain nausea vomiting or diarrhea. No dysuria or hematuria. On reviewing her vitals T-max of 98.6, heart rate in 80s, blood pr essure 146/78. Reviewing his labs from this morning showing d-dimer of 1.62, LDH 1551, CRP 182.2. 12/12/2020 Issue remains on 9 L of oxygen patient is presently on Decadron and day 3 of Remdesivir. Patient is feeling better yet. Constitutional: Denied any fatigue denied any fever. Cardio vascular: denied any chest pain, palpitations Gastrointestinal denied any nausea vomiting Pulmonary: Denied any shortness of breath cough Neurologic denied any new focal deficits All inpatient medications were reviewed and appropriate changes in these medications as dictated in the interval history and assessment and plan. Objective - Vital Signs Vital signs: Vital Signs Temp 97.4 F L 12/12/20 10:00 Pulse 77 12/12/20 10:00 Resp 16 12/12/20 10:00 BP 155/85 12/12/20 10:00 Pulse Ox 94 L 12/12/20 10:00 Intake & Output 12/11/20 12/12/20 12/12/20 18:59 06:59 18:59 Intake Total 1800 Balance 1800 Intake: Intake, IV Titration 1200 Amount Sodium Chloride 0.9% 1, 1200 000 ml @ 100 mls/hr IV . Q10H PETERSON Rx#:[id number] Oral 600 Other: # Voids 3 4 1 # Bowel Movements 1 1 - Exam PHYSICAL EXAMINATION: GENERAL: The patient is alert and oriented x3, not in any acute distress. On 9 L of nasal cannula saturating at 90% HEENT: Pupils are round and equally reacting to light. EOMI. No scleral icterus. No conjunctival pallor. CARDIOVASCULAR: S1 and S2 present. PULMONARY: Bilatral coarse breath sounds ABDOMEN: Soft, nontender, nondistended, normoactive bowel sounds. No palpable organomegaly. MUSCULOSKELETAL: No joint swelling or deformities EXTREMITIES: No cyanosis, clubbing. No pedal edema NEUROLOGICAL: Gross neurological examination did not reveal any focal deficits. SKIN: No rashes. - Labs CBC & Chem 7: 12/10/20 10:13 12/10/20 10:13 Labs: Abnormal Lab Results - Last 24 Hours (Table) 12/12/20 12/12/20 12/12/20 Range/Units 06:21 06:21 06:21 D-Dimer 2.27 H (<0.60) mg/L FEU Lactate Dehydrogenase 592 H (120-246) U/L C-Reactive Protein 8.2 H (0.0-0.8) mg/dL Procalcitonin 0.67 H (0.02-0.09) ng/mL Microbiology - Last 24 Hours (Table) 12/10/20 10:13 Blood Culture - Preliminary Blood No Growth after 48 hours 12/10/20 10:13 Blood Culture - Preliminary Blood No Growth after 48 hours Assessment and Plan Plan: Acute hypoxic respiratory failure secondary to Covid pneumonia -bit worse compared to yesterday presently in mild liters of oxygen Lymphopenia Elevated inflammatory markers Hypertension Hyperlipidemia Obesity with BMI of 35.4 PLAN: Patient has been started on remdesivir day # 2 today. Patient will be continued on Decadron, Lovenox for DVT prophylaxis, zinc and vitamin D supplements. Patient encouraged to do incentive spirometry. Protonix for GI prophylaxis. We will continue to monitor inflammatory markers and chest x-ray. Further recommendations to follow depending on the progress of the patient.
[2020-12-12] MEDS: REMDESIVIR 100 MG in SODIUM CHLORIDE 0.9% 250 ML IVPB SCH (15:15)
--- NOTE | 2020-12-12 17:01 | P.PN ---
Subjective Progress Note Date: 12/12/20 Principal diagnosis: CoVID 19 pneumonia 55-year-old male patient was hospitalized for COVID 19 related pneumonia. The patient started getting symptoms approximately a week ago, exactly last Saturday when he started having some body aches and tiredness and some shortness of breath. He came in to the emergency department on 12/08/2020 and he tested positive for occult at 19 and the patient was given monoclonal antibodies and he was discharged home. His condition progressively got more short of breath and he came into the emergency today he was hypoxic and currently is on 4 L about 2 by nasal cannula. He CAT scan of the chest was done and shows diffuse bilateral pulmonary consolidation consistent with COVID 19 related pneumonia. He is having cough. His shortness of breath. No altered mentation. No nausea or vomiting. Inflammatory markers revealed an LDH level 1965 and the patient's CRP is 242 and a d-dimer is at 2.6. CBC shows lymphopenia. Otherwise no other major abnormalities noted. For now, the patient is started on steroids. No other medical problems and comorbidities other than hypertension. Slightly obese and the BMI is 35.4. Today's evaluation of 12/11/2020, the patient is being seen for a follow-up. He is still feeling sick and miserable. Note that the patient had to be admitted yesterday because of worsening shortness of breath and he still on 4 L of oxygen by nasal cannula with a pulse of 91%. He failed convalescent plasma treatment. He is currently on Decadron. He is on day 2 of Humberto. His blood work is showing a d-dimer of 1.6 and the patient on Lovenox 40 mg subcu on a daily basis. His LDH level is improving and is currently down to 1551 and a CRP level is also improving is currently down to 182. Surprisingly the pro-calcitonin level is elevated. He is afebrile. There follow-up chest x-ray was done today and I reviewed it and there is patchy scattered bilateral pulmonary infiltrates in the mid and the upper lung zones without any significant interval change. Patient seen today 12/12/2020 in follow-up on the regular medical floor. He is currently sitting up at the bedside. Awake and alert in no acute distress. Feeling a bit better today compared to yesterday. He is still on 9 L high flow nasal cannula to maintain O2 saturations in the 90s. This is day #3 of Remdesivir. D-dimer 2.27. LDH 592. C-reactive protein 8.2. Pro-calcitonin 0.67. He remains on Lovenox, Decadron, vitamin supplements. Objective - Vital Signs Vital signs: Vital Signs Temp 97.4 F L 12/12/20 10:00 Pulse 77 12/12/20 10:00 Resp 16 12/12/20 10:00 BP 155/85 12/12/20 10:00 Pulse Ox 94 L 12/12/20 10:00 Intake & Output 12/11/20 12/12/20 12/12/20 18:59 06:59 18:59 Intake Total 1800 Output Total 800 Balance 1800 -800 Intake: Intake, IV Titration 1200 Amount Sodium Chloride 0.9% 1, 1200 000 ml @ 100 mls/hr IV . Q10H [facility] Rx#:[id number] Oral 600 Output: Urine 800 Other: # Voids 3 4 1 # Bowel Movements 1 1 - Exam Pleasant, alert 55-year-old gentleman, appear well nourished and normally developed. Vital signs as documented. Head exam is unremarkable. No scleral icterus or corneal arcus noted. Neck is without jugular venous distension, thyromegaly, or carotid bruits. Carotid upstrokes are brisk bilaterally. Lungs diminished breath sound along with extensive crackles in the mid and lower lung nguyen bilaterally. The patient is unable to do deep inspiration as his breathing gets interrupted by cough and. Cardiac exam reveals the PMI to be normally sized and situated. Rhythm is regular. First and second heart sounds normal. No murmurs, rubs or gallops. Abdominal exam reveals normal bowel sounds, no masses, no organomegaly and no aortic enlargement. Extremities are nonedematous and both femoral and pedal pulses are normal.Examination of the skin revealed no evidence of significant rashes, suspicious appearing nevi or other concerning lesions.Neurologically, the patient is awake and alert and the patient does not have any focal neurological deficit. Cranial nerves are essentially intact. - Labs CBC & Chem 7: 12/10/20 10:13 12/10/20 10:13 Labs: Abnormal Lab Results - Last 24 Hours (Table) 12/12/20 12/12/20 12/12/20 Range/Units 06:21 06:21 06:21 D-Dimer 2.27 H (<0.60) mg/L FEU Lactate Dehydrogenase 592 H (120-246) U/L C-Reactive Protein 8.2 H (0.0-0.8) mg/dL Procalcitonin 0.67 H (0.02-0.09) ng/mL Microbiology - Last 24 Hours (Table) 12/10/20 10:13 Blood Culture - Preliminary Blood No Growth after 48 hours 12/10/20 10:13 Blood Culture - Preliminary Blood No Growth after 48 hours Assessment and Plan Assessment: 1 acute COVID 19 related pneumonia. The patient came symptomatic approximately one week ago. His symptoms started on 12/04/2020. He was diagnosed having infection on 12/08/2020 and he was seen in emergency where he was given monoclonal anti-bodies and he was discharged home. Within 2 days, his condition decompensated and he presented with worsening shortness of breath. On today's evaluation, the patient is on 9 L of oxygen by nasal cannula. The patient is still feeling shortness of breath. He remains on Decadron. He is on Remdesivir day #3 2 acute hypoxic respiratory failure currently on 9 L high flow nasal cannula 3 shortness of breath secondary to above 4 elevated inflammatory markers secondary to above 5 lymphopenia secondary to above 6 hypertension Plan The patient was seen and evaluated by Dr. Owens Currently on 9 L high flow nasal cannula Day #3 of Remdesivir Remains on Decadron, Lovenox, vitamin supplements We will repeat chest x-ray, inflammatory markers in the a.m. We will continue to follow I, the cosigning physician, performed a history & physical examination of the patient. Lungs sounds with coarse crackles bilaterally. Maintaining good O2 saturations in the 90s on 9 L high flow nasal cannula. I discussed the asse ssment and plan of care with my nurse practitioner, Cherry Reyes. I attest to the above note as dictated by her.
[2020-12-13] MEDS: ENOXAPARIN 40 MG/0.4 ML SYRINGE SQ SCH ×2 (09:24→20:01)
[2020-12-13] MEDS: DEXAMETHASONE SOD PHOSPHATE 10 MG/ML 1 ML VIAL IV SCH (09:24)
[2020-12-13] MEDS: ZINC SULFATE 220 MG CAP PO SCH (09:25)
[2020-12-13] MEDS: ASCORBIC ACID 500 MG TAB PO SCH (09:25)
[2020-12-13] MEDS: PANTOPRAZOLE 40 MG TABLET PO SCH (09:25)
[2020-12-13] MEDS: SODIUM CHLORIDE 0.9% 1,000 ML IV SCH ×2 (09:26→09:27)
[2020-12-13] MEDS: CHOLECALCIFEROL 25 MCG (1000 IU) TABLET PO SCH (09:58)
[2020-12-13 10:22] LABS: C Reactive Protein 4.7 mg/dL (0.0-0.8)
--- NOTE | 2020-12-13 10:36 | XR ---
EXAMINATION TYPE: XR chest 1V portable DATE OF EXAM: 12/13/2020 Comparison: 12/11/2020 Clinical History: 55-year-old male CoVID pneumonia Findings: Heart limits of normal in size. Low lung volumes. Patchy and confluent bilateral airspace disease giles roshni in the periphery of the lungs. Impression: Continued bilateral peripheral airspace disease.
[2020-12-13] MEDS: REMDESIVIR 100 MG in SODIUM CHLORIDE 0.9% 250 ML IVPB SCH (15:08)
--- NOTE | 2020-12-13 15:22 | P.PN ---
Subjective COVID pneumonia Mr. Clements is a 55-year-old male with a past medical history of hypertension, hyperlipidemia coming into the hospital with a chief complaint of shortness of breath cough and persistent fevers. Patient had been in the emergency department on 12/08/2020 for URI-like symptoms and he was tested positive for coronavirus twice. He had a chest x-ray showing bilateral infiltrates and he was not hypoxic so he received monoclonal antibodies and discharged home. But patient had persistent fevers along with sweating that progressively worsening he also became extremely short of breath. In the ED at the time of admission he was found to have a fever of 100.0, heart rate 98, blood pressure 92/60 and saturating at 87% on room air. So the patient was admitted for further management. On reviewing his labs patient was found to have white count of 5.4 with lymphopenia and D-dimer of 2.69 and elevated ferritin 2518, LDH 1965, CRP 242. On 12/12/2019- patient is seen and examined at bedside. He states that he still continues to have exertional dyspnea. He is requiring 4-7 L of oxygen to maintain sats above 90%. Patient denies having any fevers chills or rigors. He complains of generalized weakness and fatigue. Denies having any chest pain or palpitations. No abdominal pain nausea vomiting or diarrhea. No dysuria or hematuria. On reviewing her vitals T-max of 98.6, heart rate in 80s, blood pr essure 146/78. Reviewing his labs from this morning showing d-dimer of 1.62, LDH 1551, CRP 182.2. 12/12/2020 Issue remains on 9 L of oxygen patient is presently on Decadron and day 3 of Remdesivir. Patient is feeling better yet. 12/13/2020 Patient denied any complaints although his respiratory status can use get worse and patient is presently on 10 L of oxygen saturating at 91%. Chest x-ray showed a same infiltrates has a previous x-rays no significant change. Patient d-dimer is also highly elevated to 3.6 and patient is on twice a day of Lovenox and patient is on day 4 of Remdesivir. Constitutional: Denied any fatigue denied any fever. Cardio vascular: denied any chest pain, palpitations Gastrointestinal denied any nausea vomiting Pulmonary: Denied any shortness of breath cough Neurologic denied any new focal deficits All inpatient medications were reviewed and appropriate changes in these medications as dictated in the interval history and assessment and plan. Objective - Vital Signs Vital signs: Vital Signs Temp 97.9 F 12/13/20 14:00 Pulse 84 12/13/20 14:00 Resp 19 12/13/20 14:00 BP 162/87 12/13/20 14:00 Pulse Ox 91 L 12/13/20 14:00 Intake & Output 12/12/20 12/13/20 12/13/20 18:59 06:59 18:59 Intake Total 200 Output Total 800 700 800 Balance -800 -500 -800 Intake: Oral 200 Output: Urine 800 700 800 Other: Voiding Method Toilet Urinal # Voids 1 3 - Exam PHYSICAL EXAMINATION: GENERAL: The patient is alert and oriented x3, not in any acute distress. On 10 L of nasal cannula saturating at 90% HEENT: Pupils are round and equally reacting to light. EOMI. No scleral icterus. No conjunctival pallor. CARDIOVASCULAR: S1 and S2 present. PULMONARY: Bilatral coarse breath sounds ABDOMEN: Soft, nontender, nondistended, normoactive bowel sounds. No palpable organomegaly. MUSCULOSKELETAL: No joint swelling or deformities EXTREMITIES: No cyanosis, clubbing. No pedal edema NEUROLOGICAL: Gross neurological examination did not reveal any focal deficits. SKIN: No rashes. - Labs CBC & Chem 7: 12/10/20 10:13 12/10/20 10:13 Labs: Abnormal Lab Results - Last 24 Hours (Table) 12/13/20 12/13/20 Range/Units 05:51 05:51 D-Dimer 3.60 H (<0.60) mg/L FEU Lactate Dehydrogenase 564 H (120-246) U/L C-Reactive Protein 4.7 H (0.0-0.8) mg/dL Microbiology - Last 24 Hours (Table) 12/10/20 10:13 Blood Culture - Preliminary Blood No Growth after 72 hours 12/10/20 10:13 Blood Culture - Preliminary Blood No Growth after 72 hours Assessment and Plan Plan: Acute hypoxic respiratory failure secondary to Covid pneumonia -bit worse compared to yesterday presently in 10 liters of oxygen his respiratory status appears to be worsening a bit. Lymphopenia Elevated inflammatory markers Hypertension Hyperlipidemia Obesity with BMI of 35.4 -DVT prophylaxis with Lovenox twice a day considering his highly elevated d- dimer. PLAN: Patient has been started on remdesivir day # 2 today. Patient will be continued on Decadron, Lovenox for DVT prophylaxis, zinc and vitamin D supple ments. Patient encouraged to do incentive spirometry. Protonix for GI prophylaxis. We will continue to monitor inflammatory markers and chest x-ray. Further recommendations to follow depending on the progress of the patient.
--- NOTE | 2020-12-13 17:45 | P.PN ---
Subjective Progress Note Date: 12/13/20 Principal diagnosis: CoVID 19 pneumonia 55-year-old male patient was hospitalized for COVID 19 related pneumonia. The patient started getting symptoms approximately a week ago, exactly last Saturday when he started having some body aches and tiredness and some shortness of breath. He came in to the emergency department on 12/08/2020 and he tested positive for occult at 19 and the patient was given monoclonal antibodies and he was discharged home. His condition progressively got more short of breath and he came into the emergency today he was hypoxic and currently is on 4 L about 2 by nasal cannula. He CAT scan of the chest was done and shows diffuse bilateral pulmonary consolidation consistent with COVID 19 related pneumonia. He is having cough. His shortness of breath. No altered mentation. No nausea or vomiting. Inflammatory markers revealed an LDH level 1965 and the patient's CRP is 242 and a d-dimer is at 2.6. CBC shows lymphopenia. Otherwise no other major abnormalities noted. For now, the patient is started on steroids. No other medical problems and comorbidities other than hypertension. Slightly obese and the BMI is 35.4. Today's evaluation of 12/11/2020, the patient is being seen for a follow-up. He is still feeling sick and miserable. Note that the patient had to be admitted yesterday because of worsening shortness of breath and he still on 4 L of oxygen by nasal cannula with a pulse of 91%. He failed convalescent plasma treatment. He is currently on Decadron. He is on day 2 of Humberto. His blood work is showing a d-dimer of 1.6 and the patient on Lovenox 40 mg subcu on a daily basis. His LDH level is improving and is currently down to 1551 and a CRP level is also improving is currently down to 182. Surprisingly the pro-calcitonin level is elevated. He is afebrile. There follow-up chest x-ray was done today and I reviewed it and there is patchy scattered bilateral pulmonary infiltrates in the mid and the upper lung zones without any significant interval change. Patient seen today 12/12/2020 in follow-up on the regular medical floor. He is currently sitting up at the bedside. Awake and alert in no acute distress. Feeling a bit better today compared to yesterday. He is still on 9 L high flow nasal cannula to maintain O2 saturations in the 90s. This is day #3 of Remdesivir. D-dimer 2.27. LDH 592. C-reactive protein 8.2. Pro-calcitonin 0.67. He remains on Lovenox, Decadron, vitamin supplements. The patient is seen today 12/13/2020 in follow-up on the regular medical floor. He is currently resting comfortably in bed. Awake and alert in no acute distress. He is still on 12 L high flow nasal cannula and maintaining O2 saturation in the low 90s. He's been afebrile. This is day #4 of Remdesivir. He is starting to feel better. Less shortness of breath and cough. D-dimer 3.60. LDH 564. C-reactive protein 4.7. Remains on Decadron, Lovenox, vitamin supplements. Objective - Vital Signs Vital signs: Vital Signs Temp 97.9 F 12/13/20 14:00 Pulse 84 12/13/20 14:00 Resp 19 12/13/20 14:00 BP 162/87 12/13/20 14:00 Pulse Ox 92 L 12/13/20 15:20 Intake & Output 12/12/20 12/13/20 12/13/20 18:59 06:59 18:59 Intake Total 200 Output Total 800 700 800 Balance -800 -500 -800 Intake: Oral 200 Output: Urine 800 700 800 Other: Voiding Method Toilet Urinal # Voids 1 3 - Exam Pleasant, alert 55-year-old gentleman, appears well nourished and normally developed. Vital signs as documented. Head exam is unremarkable. No scleral icterus or corneal arcus noted. Neck is without jugular venous distension, thyromegaly, or carotid bruits. Carotid upstrokes are brisk bilaterally. Lungs diminished breath sound along with extensive crackles in the mid and lower lung nguyen bilaterally. The patient is unable to do deep inspiration as his breathing gets interrupted by cough and. Cardiac exam reveals the PMI to be normally sized and situated. Rhythm is regular. First and second heart sounds normal. No murmurs, rubs or gallops. Abdominal exam reveals normal bowel sounds, no masses, no organomegaly and no aortic enlargement. Extremities are nonedematous and both femoral and pedal pulses are normal.Examination of the s kin revealed no evidence of significant rashes, suspicious appearing nevi or other concerning lesions.Neurologically, the patient is awake and alert and the patient does not have any focal neurological deficit. Cranial nerves are essentially intact. - Labs CBC & Chem 7: 12/10/20 10:13 12/10/20 10:13 Labs: Abnormal Lab Results - Last 24 Hours (Table) 12/13/20 12/13/20 Range/Units 05:51 05:51 D-Dimer 3.60 H (<0.60) mg/L FEU Lactate Dehydrogenase 564 H (120-246) U/L C-Reactive Protein 4.7 H (0.0-0.8) mg/dL Microbiology - Last 24 Hours (Table) 12/10/20 10:13 Blood Culture - Preliminary Blood No Growth after 72 hours 12/10/20 10:13 Blood Culture - Preliminary Blood No Growth after 72 hours Assessment and Plan Assessment: 1 acute COVID 19 related pneumonia. The patient came symptomatic approximately one week ago. His symptoms started on 12/04/2020. He was diagnosed having infection on 12/08/2020 and he was seen in emergency where he was given monoclonal anti-bodies and he was discharged home. Within 2 days, his condition decompensated and he presented with worsening shortness of breath. On today's evaluation, the patient is on 12 L of oxygen by nasal cannula. He is on Remdesivir day #4. Chest x-ray shows continued patchy bilateral airspace disease. 2 acute hypoxic respiratory failure currently on 9 L high flow nasal cannula 3 shortness of breath secondary to above 4 elevated inflammatory markers secondary to above 5 lymphopenia secondary to above 6 hypertension Plan The patient was seen and evaluated by Dr. Owens Currently on 12 L high flow nasal cannula Day #4 of Remdesivir Remains on Decadron, Lovenox, vitamin supplements We will continue to follow I, the cosigning physician, performed a history & physical examination of the patient. Lungs sounds with coarse crackles bilaterally. Maintaining good O2 saturations in the 90s on 9 L high flow nasal cannula. I discussed the assessment and plan of care with my nurse practitioner, Cherry Reeys. I attest to the above note as dictated by her.
[2020-12-14] MEDS: SODIUM CHLORIDE 0.9% 1,000 ML IV SCH ×2 (03:43→18:43)
[2020-12-14] MEDS: ZINC SULFATE 220 MG CAP PO SCH (08:48)
[2020-12-14] MEDS: ASCORBIC ACID 500 MG TAB PO SCH (08:48)
[2020-12-14] MEDS: CHOLECALCIFEROL 25 MCG (1000 IU) TABLET PO SCH (08:48)
[2020-12-14] MEDS: ENOXAPARIN 40 MG/0.4 ML SYRINGE SQ SCH ×2 (08:48→20:05)
[2020-12-14] MEDS: PANTOPRAZOLE 40 MG TABLET PO SCH (08:48)
[2020-12-14] MEDS: DEXAMETHASONE SOD PHOSPHATE 10 MG/ML 1 ML VIAL IV SCH (12:46)
--- NOTE | 2020-12-14 15:00 | P.PN ---
Subjective COVID pneumonia Mr. Clements is a 55-year-old male with a past medical history of hypertension, hyperlipidemia coming into the hospital with a chief complaint of shortness of breath cough and persistent fevers. Patient had been in the emergency department on 12/08/2020 for URI-like symptoms and he was tested positive for coronavirus twice. He had a chest x-ray showing bilateral infiltrates and he was not hypoxic so he received monoclonal antibodies and discharged home. But patient had persistent fevers along with sweating that progressively worsening he also became extremely short of breath. In the ED at the time of admission he was found to have a fever of 100.0, heart rate 98, blood pressure 92/60 and saturating at 87% on room air. So the patient was admitted for further management. On reviewing his labs patient was found to have white count of 5.4 with lymphopenia and D-dimer of 2.69 and elevated ferritin 2518, LDH 1965, CRP 242. On 12/12/2019- patient is seen and examined at bedside. He states that he still continues to have exertional dyspnea. He is requiring 4-7 L of oxygen to maintain sats above 90%. Patient denies having any fevers chills or rigors. He complains of generalized weakness and fatigue. Denies having any chest pain or palpitations. No abdominal pain nausea vomiting or diarrhea. No dysuria or hematuria. On reviewing her vitals T-max of 98.6, heart rate in 80s, blood pr essure 146/78. Reviewing his labs from this morning showing d-dimer of 1.62, LDH 1551, CRP 182.2. 12/12/2020 Issue remains on 9 L of oxygen patient is presently on Decadron and day 3 of Remdesivir. Patient is feeling better yet. 12/13/2020 Patient denied any complaints although his respiratory status can use get worse and patient is presently on 10 L of oxygen saturating at 91%. Chest x-ray showed a same infiltrates has a previous x-rays no significant change. Patient d-dimer is also highly elevated to 3.6 and patient is on twice a day of Lovenox and patient is on day 4 of Remdesivir. 05/16/2021 Patient remains on the around 13 L of oxygen completed timed is Remdesivir. Patient although overall feels better, remains on IV fluid which can be discontinued at this time. Constitutional: Denied any fatigue denied any fever. Cardio vascular: denied any chest pain, palpitations Gastrointestinal denied any nausea vomiting Pulmonary: Denied any shortness of breath cough Neurologic denied any new focal deficits All inpatient medications were reviewed and appropriate changes in these medications as dictated in the interval history and assessment and plan. Objective - Vital Signs Vital signs: Vital Signs Temp 97.9 F 12/14/20 14:37 Pulse 66 12/14/20 14:37 Resp 14 12/14/20 14:37 BP 159/85 12/14/20 14:37 Pulse Ox 91 L 12/14/20 14:37 Intake & Output 12/13/20 12/14/20 12/14/20 18:59 06:59 18:59 Intake Total 1080 300 Output Total 1400 700 Balance -320 300 -700 Intake: Oral 1080 300 Output: Urine 1400 700 Other: Voiding Method Toilet Toilet Urinal Urinal # Voids 1 3 - Exam PHYSICAL EXAMINATION: GENERAL: The patient is alert and oriented x3, not in any acute distress. On 10 L of nasal cannula saturating at 90% HEENT: Pupils are round and equally reacting to light. EOMI. No scleral icterus. No conjunctival pallor. CARDIOVASCULAR: S1 and S2 present. PULMONARY: Bilatral coarse breath sounds ABDOMEN: Soft, nontender, nondistended, normoactive bowel sounds. No palpable organomegaly. MUSCULOSKELETAL: No joint swelling or deformities EXTREMITIES: No cyanosis, clubbing. No pedal edema NEUROLOGICAL: Gross neurological examination did not reveal any focal deficits. SKIN: No rashes. - Labs CBC & Chem 7: 12/10/20 10:13 12/10/20 10:13 Labs: Microbiology - Last 24 Hours (Table) 12/10/20 10:13 Blood Culture - Preliminary Blood No Growth after 96 hours 12/10/20 10:13 Blood Culture - Preliminary Blood No Growth after 96 hours Assessment and Plan Plan: Acute hypoxic respiratory failure secondary to Covid pneumonia -bit worse compared to yesterday presently in 13 liters of oxygen his respiratory status appears to be stable without any significant improvement Lymphopenia Elevated inflammatory markers Hypertension Hyperlipidemia Obesity with BMI of 35.4 -DVT prophylaxis with Lovenox twice a day considering his highly elevated d- dimer. PLAN: Patient completed remdesivir. Patient will be continued on Decadron, Lovenox for DVT prophylaxis, zinc and vitamin D supplements. Patient encouraged to do incentive spirometry. Protonix for GI prophylaxis. We will continue to monitor inflammatory markers and chest x-ray. Further recommendations to follow depending on the progress of the patient.
[2020-12-14] MEDS: REMDESIVIR 100 MG in SODIUM CHLORIDE 0.9% 250 ML IVPB SCH (16:16)
--- NOTE | 2020-12-14 19:11 | P.PN ---
Subjective Progress Note Date: 12/14/20 Principal diagnosis: CoVID 19 pneumonia 55-year-old male patient was hospitalized for COVID 19 related pneumonia. The patient started getting symptoms approximately a week ago, exactly last Saturday when he started having some body aches and tiredness and some shortness of breath. He came in to the emergency department on 12/08/2020 and he tested positive for occult at 19 and the patient was given monoclonal antibodies and he was discharged home. His condition progressively got more short of breath and he came into the emergency today he was hypoxic and currently is on 4 L about 2 by nasal cannula. He CAT scan of the chest was done and shows diffuse bilateral pulmonary consolidation consistent with COVID 19 related pneumonia. He is having cough. His shortness of breath. No altered mentation. No nausea or vomiting. Inflammatory markers revealed an LDH level 1965 and the patient's CRP is 242 and a d-dimer is at 2.6. CBC shows lymphopenia. Otherwise no other major abnormalities noted. For now, the patient is started on steroids. No other medical problems and comorbidities other than hypertension. Slightly obese and the BMI is 35.4. Today's evaluation of 12/11/2020, the patient is being seen for a follow-up. He is still feeling sick and miserable. Note that the patient had to be admitted yesterday because of worsening shortness of breath and he still on 4 L of oxygen by nasal cannula with a pulse of 91%. He failed convalescent plasma treatment. He is currently on Decadron. He is on day 2 of Humberto. His blood work is showing a d-dimer of 1.6 and the patient on Lovenox 40 mg subcu on a daily basis. His LDH level is improving and is currently down to 1551 and a CRP level is also improving is currently down to 182. Surprisingly the pro-calcitonin level is elevated. He is afebrile. There follow-up chest x-ray was done today and I reviewed it and there is patchy scattered bilateral pulmonary infiltrates in the mid and the upper lung zones without any significant interval change. Patient seen today 12/12/2020 in follow-up on the regular medical floor. He is currently sitting up at the bedside. Awake and alert in no acute distress. Feeling a bit better today compared to yesterday. He is still on 9 L high flow nasal cannula to maintain O2 saturations in the 90s. This is day #3 of Remdesivir. D-dimer 2.27. LDH 592. C-reactive protein 8.2. Pro-calcitonin 0.67. He remains on Lovenox, Decadron, vitamin supplements. The patient is seen today 12/13/2020 in follow-up on the regular medical floor. He is currently resting comfortably in bed. Awake and alert in no acute distress. He is still on 12 L high flow nasal cannula and maintaining O2 saturation in the low 90s. He's been afebrile. This is day #4 of Remdesivir. He is starting to feel better. Less shortness of breath and cough. D-dimer 3.60. LDH 564. C-reactive protein 4.7. Remains on Decadron, Lovenox, vitamin supplements. The patient is seen today 12/14/2020 in follow-up on the regular medical floor. He sitting up in bed. Awake and alert in no acute distress. Feeling a bit better today compared to yesterday. He is maintaining O2 saturations in the 90s on 12 L high flow nasal cannula. He has received his fifth dose of Remdesivir. He remains on Decadron, Lovenox, vitamin supplements. Objective - Vital Signs Vital signs: Vital Signs Temp 97.4 F L 12/14/20 18:36 Pulse 71 12/14/20 18:36 Resp 15 12/14/20 18:36 BP 163/87 12/14/20 18:36 Pulse Ox 92 L 12/14/20 18:36 Intake & Output 12/14/20 12/14/20 12/15/20 06:59 18:59 06:59 Intake Total 300 Output Total 700 Balance 300 -700 Intake: Oral 300 Output: Urine 700 Other: Voiding Method Toilet Urinal # Voids 3 1 - Exam GENERAL EXAM: Alert, pleasant 55-year-old gentleman, on 12 L high flow nasal cannula, comfortable in no apparent distress. HEAD: Normocephalic. EYES: Normal reaction of pupils, equal size. NOSE: Clear with pink turbinates. THROAT: No erythema or exudates. NECK: No masses, no JVD. CHEST: No chest wall deformity. LUNGS: Equal air entry with coarse crackles in the posterior bases CVS: S1 and S2 normal with no audible murmur, regular rhythm. ABDOMEN: No hepatosplenomegaly, normal bowel sounds, no guarding or rigidity. SPINE: No scoliosis or deformity SKIN: No rashes CENTRAL NERVOUS SYSTEM: No focal deficits, tone is normal in all 4 extremities. EXTREMITIES: There is no peripheral edema. No clubbing, no cyanosis. Peripheral pulses are intact. - Labs CBC & Chem 7: 12/10/20 10:13 12/10/20 10:13 Labs: Microbiology - Last 24 Hours (Table) 12/10/20 10:13 Blood Culture - Preliminary Blood No Growth after 96 hours 12/10/20 10:13 Blood Culture - Preliminary Blood No Growth after 96 hours Assessment and Plan Assessment: 1 acute COVID 19 related pneumonia. His symptoms started on 12/04/2020. He was diagnosed having CoVID on 12/08/2020 and he was seen in emergency where he was given monoclonal anti-bodies and he was discharged home. Within 2 days, his condition decompensated and he presented with worsening shortness of breath. On today's evaluation, the patient is on 12 L of oxygen by nasal cannula. He is on Remdesivir day #5. Chest x-ray shows continued patchy bilateral airspace disease. 2 acute hypoxic respiratory failure currently on 12 L high flow nasal cannula 3 shortness of breath secondary to above 4 elevated inflammatory markers secondary to above 5 lymphopenia secondary to above 6 hypertension Plan The patient was seen and evaluated by Dr. Owens Currently on 12 L high flow nasal cannula Titrate down the FiO2 as tolerated Day #5 of Remdesivir Remains on Decadron, Lovenox, vitamin supplements We will continue to follow I, the cosigning physician, performed a history & physical examination of the patient. Lungs sounds with coarse crackles bilaterally. Maintaining good O2 saturations in the 90s on 12 L high flow nasal cannula. I discussed the assessment and plan of care with my nurse practitioner, Cherry Reyes. I attest to the above note as dictated by her.
[2020-12-14] MEDS: ALBUTEROL HFA INHALER INHALATION PRN (19:34)
[2020-12-15] MEDS: ASCORBIC ACID 500 MG TAB PO SCH (07:48)
[2020-12-15] MEDS: CHOLECALCIFEROL 25 MCG (1000 IU) TABLET PO SCH (07:48)
[2020-12-15] MEDS: DEXAMETHASONE SOD PHOSPHATE 10 MG/ML 1 ML VIAL IV SCH (07:48)
[2020-12-15] MEDS: ZINC SULFATE 220 MG CAP PO SCH (07:48)
[2020-12-15] MEDS: PANTOPRAZOLE 40 MG TABLET PO SCH (07:48)
[2020-12-15] MEDS: ALBUTEROL HFA INHALER INHALATION PRN (07:52)
[2020-12-15] MEDS: ENOXAPARIN 40 MG/0.4 ML SYRINGE SQ SCH ×2 (08:05→20:08)
[2020-12-15 13:36] VITALS: BMI 35.4
--- NOTE | 2020-12-15 16:36 | P.PN ---
Subjective Progress Note Date: 12/15/20 Principal diagnosis: CoVID 19 pneumonia 55-year-old male patient was hospitalized for COVID 19 related pneumonia. The patient started getting symptoms approximately a week ago, exactly last Saturday when he started having some body aches and tiredness and some shortness of breath. He came in to the emergency department on 12/08/2020 and he tested positive for occult at 19 and the patient was given monoclonal antibodies and he was discharged home. His condition progressively got more short of breath and he came into the emergency today he was hypoxic and currently is on 4 L about 2 by nasal cannula. He CAT scan of the chest was done and shows diffuse bilateral pulmonary consolidation consistent with COVID 19 related pneumonia. He is having cough. His shortness of breath. No altered mentation. No nausea or vomiting. Inflammatory markers revealed an LDH level 1965 and the patient's CRP is 242 and a d-dimer is at 2.6. CBC shows lymphopenia. Otherwise no other major abnormalities noted. For now, the patient is started on steroids. No other medical problems and comorbidities other than hypertension. Slightly obese and the BMI is 35.4. Today's evaluation of 12/11/2020, the patient is being seen for a follow-up. He is still feeling sick and miserable. Note that the patient had to be admitted yesterday because of worsening shortness of breath and he still on 4 L of oxygen by nasal cannula with a pulse of 91%. He failed convalescent plasma treatment. He is currently on Decadron. He is on day 2 of Humberto. His blood work is showing a d-dimer of 1.6 and the patient on Lovenox 40 mg subcu on a daily basis. His LDH level is improving and is currently down to 1551 and a CRP level is also improving is currently down to 182. Surprisingly the pro-calcitonin level is elevated. He is afebrile. There follow-up chest x-ray was done today and I reviewed it and there is patchy scattered bilateral pulmonary infiltrates in the mid and the upper lung zones without any significant interval change. Patient seen today 12/12/2020 in follow-up on the regular medical floor. He is currently sitting up at the bedside. Awake and alert in no acute distress. Feeling a bit better today compared to yesterday. He is still on 9 L high flow nasal cannula to maintain O2 saturations in the 90s. This is day #3 of Remdesivir. D-dimer 2.27. LDH 592. C-reactive protein 8.2. Pro-calcitonin 0.67. He remains on Lovenox, Decadron, vitamin supplements. The patient is seen today 12/13/2020 in follow-up on the regular medical floor. He is currently resting comfortably in bed. Awake and alert in no acute distress. He is still on 12 L high flow nasal cannula and maintaining O2 saturation in the low 90s. He's been afebrile. This is day #4 of Remdesivir. He is starting to feel better. Less shortness of breath and cough. D-dimer 3.60. LDH 564. C-reactive protein 4.7. Remains on Decadron, Lovenox, vitamin supplements. The patient is seen today 12/14/2020 in follow-up on the regular medical floor. He sitting up in bed. Awake and alert in no acute distress. Feeling a bit better today compared to yesterday. He is maintaining O2 saturations in the 90s on 12 L high flow nasal cannula. He has received his fifth dose of Remdesivir. He remains on Decadron, Lovenox, vitamin supplements. The patient is seen today 12/15/2020 in follow-up on the regular medical floor. Awake and alert in no acute distress. Resting comfortably in bed. Feeling stronger each day. Still short of breath with activity. He is still on 12 L high flow nasal cannula to maintain O2 saturations in the 90s. Completed a course of Remdesivir. Continued on Lovenox, Decadron, vitamin supplements. Objective - Vital Signs Vital signs: Vital Signs Temp 97.6 F 12/15/20 13:54 Pulse 73 12/15/20 13:54 Resp 16 12/15/20 13:54 BP 149/86 12/15/20 13:54 Pulse Ox 92 L 12/15/20 13:54 Intake & Output 12/14/20 12/15/20 12/15/20 18:59 06:59 18:59 Output Total 700 Balance -700 Weight 90.718 kg Output: Urine 700 Other: Voiding Method Toilet Toilet Urinal Urinal # Voids 1 2 - Exam GENERAL EXAM: Alert, pleasant 55-year-old gentleman, on 12 L high flow nasal cannula, comfortable in no apparent distress. HEAD: Normocephalic. EYES: Normal reaction of pupils, equal size. NOSE: Clear with pink turbinates. THROAT: No erythema or exudates. NECK: No masses, no JVD. CHEST: No chest wall deformity. LUNGS: Equal air entry with coarse crackles in the posterior bases CVS: S1 and S2 normal with no audible murmur, regular rhythm. ABDOMEN: No hepatosplenomegaly, normal bowel sounds, no guarding or rigidity. SPINE: No scoliosis or deformity SKIN: No rashes CENTRAL NERVOUS SYSTEM: No focal deficits, tone is normal in all 4 extremities. EXTREMITIES: There is no peripheral edema. No clubbing, no cyanosis. Peripheral pulses are intact. - Labs CBC & Chem 7: 12/10/20 10:13 12/10/20 10:13 Labs: Microbiology - Last 24 Hours (Table) 12/10/20 10:13 Blood Culture - Preliminary Blood No Growth after 120 hours 12/10/20 10:13 Blood Culture - Preliminary Blood No Growth after 120 hours Assessment and Plan Assessment: 1 acute COVID 19 related pneumonia. His symptoms started on 12/04/2020. He was diagnosed having CoVID on 12/08/2020 and he was seen in emergency where he was given monoclonal anti-bodies and he was discharged home. Within 2 days, his condition decompensated and he presented with worsening shortness of breath. On today's evaluation, the patient is on 12 L of oxygen by nasal cannula. He completed Remdesivir. Chest x-ray shows continued patchy bilateral airspace disease. 2 acute hypoxic respiratory failure currently on 12 L high flow nasal cannula 3 shortness of breath secondary to above 4 elevated inflammatory markers secondary to above 5 lymphopenia secondary to above 6 hypertension Plan The patient was seen and evaluated by Dr. Owens Currently on 12 L high flow nasal cannula Titrate down the FiO2 as tolerated Completed Remdesivir We'll discontinue dexamethasone and start IV Solu-Medrol Follow-up chest x-ray and labs in a.m. We will continue to follow I, the cosigning physician, performed a history & physical examination of the patient. Lungs sounds with coarse crackles bilaterally. Maintaining good O2 saturations in the 90s on 12 L high flow nasal cannula. I discussed the assessment and plan of care with my nurse practitioner, Cherry Reyes. I attest to the above note as dictated by her.
--- NOTE | 2020-12-15 17:08 | P.PN ---
Subjective COVID pneumonia Mr. Clements is a 55-year-old male with a past medical history of hypertension, hyperlipidemia coming into the hospital with a chief complaint of shortness of breath cough and persistent fevers. Patient had been in the emergency department on 12/08/2020 for URI-like symptoms and he was tested positive for coronavirus twice. He had a chest x-ray showing bilateral infiltrates and he was not hypoxic so he received monoclonal antibodies and discharged home. But patient had persistent fevers along with sweating that progressively worsening he also became extremely short of breath. In the ED at the time of admission he was found to have a fever of 100.0, heart rate 98, blood pressure 92/60 and saturating at 87% on room air. So the patient was admitted for further management. On reviewing his labs patient was found to have white count of 5.4 with lymphopenia and D-dimer of 2.69 and elevated ferritin 2518, LDH 1965, CRP 242. On 12/12/2019- patient is seen and examined at bedside. He states that he still continues to have exertional dyspnea. He is requiring 4-7 L of oxygen to maintain sats above 90%. Patient denies having any fevers chills or rigors. He complains of generalized weakness and fatigue. Denies having any chest pain or palpitations. No abdominal pain nausea vomiting or diarrhea. No dysuria or hematuria. On reviewing her vitals T-max of 98.6, heart rate in 80s, blood pr essure 146/78. Reviewing his labs from this morning showing d-dimer of 1.62, LDH 1551, CRP 182.2. 12/12/2020 Issue remains on 9 L of oxygen patient is presently on Decadron and day 3 of Remdesivir. Patient is feeling better yet. 12/13/2020 Patient denied any complaints although his respiratory status can use get worse and patient is presently on 10 L of oxygen saturating at 91%. Chest x-ray showed a same infiltrates has a previous x-rays no significant change. Patient d-dimer is also highly elevated to 3.6 and patient is on twice a day of Lovenox and patient is on day 4 of Remdesivir. 05/16/2021 Patient remains on the around 13 L of oxygen completed timed is Remdesivir. Patient although overall feels better, remains on IV fluid which can be discontinued at this time. 12/15/2020 Patient is presently on 4 L of oxygen today, fairly comfortable on this oxygen. Constitutional: Denied any fatigue denied any fever. Cardio vascular: denied any chest pain, palpitations Gastrointestinal denied any nausea vomiting Pulmonary: Denied any shortness of breath cough Neurologic denied any new focal deficits All inpatient medications were reviewed and appropriate changes in these medi cations as dictated in the interval history and assessment and plan. Objective - Vital Signs Vital signs: Vital Signs Temp 97.6 F 12/15/20 13:54 Pulse 73 12/15/20 13:54 Resp 16 12/15/20 13:54 BP 149/86 12/15/20 13:54 Pulse Ox 92 L 12/15/20 13:54 Intake & Output 12/14/20 12/15/20 12/15/20 18:59 06:59 18:59 Output Total 700 Balance -700 Weight 90.718 kg Output: Urine 700 Other: Voiding Method Toilet Toilet Urinal Urinal # Voids 1 2 - Exam PHYSICAL EXAMINATION: GENERAL: The patient is alert and oriented x3, not in any acute distress. On 10 L of nasal cannula saturating at 90% HEENT: Pupils are round and equally reacting to light. EOMI. No scleral icterus. No conjunctival pallor. CARDIOVASCULAR: S1 and S2 present. PULMONARY: Bilatral coarse breath sounds ABDOMEN: Soft, nontender, nondistended, normoactive bowel sounds. No palpable organomegaly. MUSCULOSKELETAL: No joint swelling or deformities EXTREMITIES: No cyanosis, clubbing. No pedal edema NEUROLOGICAL: Gross neurological examination did not reveal any focal deficits. SKIN: No rashes. - Labs CBC & Chem 7: 12/10/20 10:13 12/10/20 10:13 Labs: Microbiology - Last 24 Hours (Table) 12/10/20 10:13 Blood Culture - Preliminary Blood No Growth after 120 hours 12/10/20 10:13 Blood Culture - Preliminary Blood No Growth after 120 hours Assessment and Plan Plan: Acute hypoxic respiratory failure secondary to Covid pneumonia -bit worse compared to yesterday presently in 13 liters of oxygen his respiratory status appears to be stable without any significant improvement Lymphopenia Elevated inflammatory markers Hypertension Hyperlipidemia Obesity with BMI of 35.4 -DVT prophylaxis with Lovenox twice a day considering his highly elevated d- dimer. PLAN: Patient completed remdesivir. Patient will be continued on Decadron, Lovenox for DVT prophylaxis, zinc and vitamin D supplements. Patient encouraged to do incentive spirometry. Protonix for GI prophylaxis. We will continue to monitor inflammatory markers and chest x-ray. Further recommendations to follow depending on the progress of the patient.
[2020-12-15] MEDS: methylPREDNISolone SOD SUCCI 40 MG/ML 1 ML VIAL IV SCH ×2 (17:31→23:00)
[2020-12-15] MEDS ORDERED: methylPREDNISolone SOD SUCCI 125 MG/2 ML VIAL IV SCH (18:00)
[2020-12-16 07:07] LABS: Glucose,Whole Blood 238 mg/dL (75-99)
[2020-12-16] MEDS: ASCORBIC ACID 500 MG TAB PO SCH (07:35)
[2020-12-16] MEDS: CHOLECALCIFEROL 25 MCG (1000 IU) TABLET PO SCH (07:35)
[2020-12-16] MEDS: methylPREDNISolone SOD SUCCI 40 MG/ML 1 ML VIAL IV SCH (07:35)
[2020-12-16] MEDS: ZINC SULFATE 220 MG CAP PO SCH (07:35)
[2020-12-16] MEDS: PANTOPRAZOLE 40 MG TABLET PO SCH (07:35)
[2020-12-16] MEDS: ENOXAPARIN 40 MG/0.4 ML SYRINGE SQ SCH ×2 (07:36→20:53)
[2020-12-16] MEDS: ALBUTEROL HFA INHALER INHALATION PRN (08:19)
[2020-12-16 08:51] LABS: C Reactive Protein 46.8 mg/L (<10.0)
[2020-12-16 11:20] LABS: Glucose,Whole Blood 407 mg/dL (75-99)
[2020-12-16] MEDS: INSULIN ASPART (NovoLOG) 100 UNIT/ML VIAL SQ SCH ×3 (11:38→20:52)
--- NOTE | 2020-12-16 11:38 | XR ---
EXAMINATION TYPE: XR chest 1V portable DATE OF EXAM: 12/16/2020 Comparison: 12/13/2020 Clinical History: 55-year-old male CoVID pneumonia Findings: Heart normal size. Diffuse interstitial opacity and patchy peripheral opacities have become slightly less confluent from prior exam. Impression: Persistent but improving COVID pneumonia.
--- NOTE | 2020-12-16 14:13 | P.PN ---
Subjective COVID pneumonia Mr. Clements is a 55-year-old male with a past medical history of hypertension, hyperlipidemia coming into the hospital with a chief complaint of shortness of breath cough and persistent fevers. Patient had been in the emergency department on 12/08/2020 for URI-like symptoms and he was tested positive for coronavirus twice. He had a chest x-ray showing bilateral infiltrates and he was not hypoxic so he received monoclonal antibodies and discharged home. But patient had persistent fevers along with sweating that progressively worsening he also became extremely short of breath. In the ED at the time of admission he was found to have a fever of 100.0, heart rate 98, blood pressure 92/60 and saturating at 87% on room air. So the patient was admitted for further management. On reviewing his labs patient was found to have white count of 5.4 with lymphopenia and D-dimer of 2.69 and elevated ferritin 2518, LDH 1965, CRP 242. On 12/12/2019- patient is seen and examined at bedside. He states that he still continues to have exertional dyspnea. He is requiring 4-7 L of oxygen to maintain sats above 90%. Patient denies having any fevers chills or rigors. He complains of generalized weakness and fatigue. Denies having any chest pain or palpitations. No abdominal pain nausea vomiting or diarrhea. No dysuria or hematuria. On reviewing her vitals T-max of 98.6, heart rate in 80s, blood pr essure 146/78. Reviewing his labs from this morning showing d-dimer of 1.62, LDH 1551, CRP 182.2. 12/12/2020 Issue remains on 9 L of oxygen patient is presently on Decadron and day 3 of Remdesivir. Patient is feeling better yet. 12/13/2020 Patient denied any complaints although his respiratory status can use get worse and patient is presently on 10 L of oxygen saturating at 91%. Chest x-ray showed a same infiltrates has a previous x-rays no significant change. Patient d-dimer is also highly elevated to 3.6 and patient is on twice a day of Lovenox and patient is on day 4 of Remdesivir. 05/16/2021 Patient remains on the around 13 L of oxygen completed timed is Remdesivir. Patient although overall feels better, remains on IV fluid which can be discontinued at this time. 12/15/2020 Patient is presently on 4 L of oxygen today, fairly comfortable on this oxygen. 12/16/2020 Patient is to have elevated inflammatory markers including d-dimer of 6.9 to an LDH of 1195. Patient remains on the 11-12 L of oxygen blood sugars are very high patient is not a known diabetic for will be obtained patient had a lot of outside food that was delivered to metastatic not eat as his blood sugars are very high. Constitutional: Denied any fatigue denied any fever. Cardio vascular: denied any chest pain, palpitations Gastrointestinal denied any nausea vomiting Pulmonary: Denied any shortness of breath cough Neurologic denied any new focal deficits All inpatient medications were reviewed and appropriate changes in these medications as dictated in the interval history and assessment and plan. Objective - Vital Signs Vital signs: Vital Signs Temp 97.6 F 12/16/20 13:50 Pulse 68 12/16/20 13:50 Resp 18 12/16/20 13:50 BP 152/88 12/16/20 13:50 Pulse Ox 92 L 12/16/20 13:50 Intake & Output 12/15/20 12/16/20 12/16/20 18:59 06:59 18:59 Weight 90.718 kg Other: Voiding Method Toilet Toilet Urinal Urinal # Voids 2 3 - Exam PHYSICAL EXAMINATION: GENERAL: The patient is alert and oriented x3, not in any acute distress. On 10 L of nasal cannula saturating at 90% HEENT: Pupils are round and equally reacting to light. EOMI. No scleral icterus. No conjunctival pallor. CARDIOVASCULAR: S1 and S2 present. PULMONARY: Bilatral coarse breath sounds ABDOMEN: Soft, nontender, nondistended, normoactive bowel sounds. No palpable organomegaly. MUSCULOSKELETAL: No joint swelling or deformities EXTREMITIES: No cyanosis, clubbing. No pedal edema NEUROLOGICAL: Gross neurological examination did not reveal any focal deficits. SKIN: No rashes. - Labs CBC & Chem 7: 12/10/20 10:13 12/10/20 10:13 Labs: Abnormal Lab Results - Last 24 Hours (Table) 12/16/20 12/16/20 12/16/20 Range/Units 06:56 07:34 07:34 D-Dimer 6.92 H (<0.60) mg/L FEU POC Glucose (mg/dL) 238 H (75-99) mg/dL Lactate Dehydrogenase 1195 H (313-618) U/L C-Reactive Protein 46.8 H (<10.0) mg/L 12/16/20 Range/Units 11:18 D-Dimer (<0.60) mg/L FEU POC Glucose (mg/dL) 407 H (75-99) mg/dL Lactate Dehydrogenase (313-618) U/L C-Reactive Protein (<10.0) mg/L Microbiology - Last 24 Hours (Table) 12/10/20 10:13 Blood Culture - Final Blood No Growth after 144 hours 12/10/20 10:13 Blood Culture - Final Blood No Growth after 144 hours Assessment and Plan Plan: Acute hypoxic respiratory failure secondary to Covid pneumonia -bit worse compared to yesterday presently on 30 L patient says he is doing better. -Hypoglycemia: Secondary to systemic steroids patient is not a known diabetic hemoglobin A1c will be obtained dietary counseling was provided Lymphopenia Hypertension Hyperlipidemia Obesity with BMI of 35.4 -DVT prophylaxis with Lovenox twice a day considering his highly elevated d- dimer. PLAN: Patient completed remdesivir. Patient will be continued on Decadron, Lovenox for DVT prophylaxis, zinc and vitamin D supplements. Patient encouraged to do incentive spirometry. Protonix for GI prophylaxis. We will continue to monitor inflammatory markers and chest x-ray. Further recommendations to follow depending on the progress of the patient.
[2020-12-16 16:22] LABS: Glucose,Whole Blood 345 mg/dL (75-99)
--- NOTE | 2020-12-16 17:35 | P.PN ---
Subjective Progress Note Date: 12/16/20 Principal diagnosis: CoVID 19 pneumonia 55-year-old male patient was hospitalized for COVID 19 related pneumonia. The patient started getting symptoms approximately a week ago, exactly last Saturday when he started having some body aches and tiredness and some shortness of breath. He came in to the emergency department on 12/08/2020 and he tested positive for occult at 19 and the patient was given monoclonal antibodies and he was discharged home. His condition progressively got more short of breath and he came into the emergency today he was hypoxic and currently is on 4 L about 2 by nasal cannula. He CAT scan of the chest was done and shows diffuse bilateral pulmonary consolidation consistent with COVID 19 related pneumonia. He is having cough. His shortness of breath. No altered mentation. No nausea or vomiting. Inflammatory markers revealed an LDH level 1965 and the patient's CRP is 242 and a d-dimer is at 2.6. CBC shows lymphopenia. Otherwise no other major abnormalities noted. For now, the patient is started on steroids. No other medical problems and comorbidities other than hypertension. Slightly obese and the BMI is 35.4. Today's evaluation of 12/11/2020, the patient is being seen for a follow-up. He is still feeling sick and miserable. Note that the patient had to be admitted yesterday because of worsening shortness of breath and he still on 4 L of oxygen by nasal cannula with a pulse of 91%. He failed convalescent plasma treatment. He is currently on Decadron. He is on day 2 of Humberto. His blood work is showing a d-dimer of 1.6 and the patient on Lovenox 40 mg subcu on a daily basis. His LDH level is improving and is currently down to 1551 and a CRP level is also improving is currently down to 182. Surprisingly the pro-calcitonin level is elevated. He is afebrile. There follow-up chest x-ray was done today and I reviewed it and there is patchy scattered bilateral pulmonary infiltrates in the mid and the upper lung zones without any significant interval change. Patient seen today 12/12/2020 in follow-up on the regular medical floor. He is currently sitting up at the bedside. Awake and alert in no acute distress. Feeling a bit better today compared to yesterday. He is still on 9 L high flow nasal cannula to maintain O2 saturations in the 90s. This is day #3 of Remdesivir. D-dimer 2.27. LDH 592. C-reactive protein 8.2. Pro-calcitonin 0.67. He remains on Lovenox, Decadron, vitamin supplements. The patient is seen today 12/13/2020 in follow-up on the regular medical floor. He is currently resting comfortably in bed. Awake and alert in no acute distress. He is still on 12 L high flow nasal cannula and maintaining O2 saturation in the low 90s. He's been afebrile. This is day #4 of Remdesivir. He is starting to feel better. Less shortness of breath and cough. D-dimer 3.60. LDH 564. C-reactive protein 4.7. Remains on Decadron, Lovenox, vitamin supplements. The patient is seen today 12/14/2020 in follow-up on the regular medical floor. He sitting up in bed. Awake and alert in no acute distress. Feeling a bit better today compared to yesterday. He is maintaining O2 saturations in the 90s on 12 L high flow nasal cannula. He has received his fifth dose of Remdesivir. He remains on Decadron, Lovenox, vitamin supplements. The patient is seen today 12/15/2020 in follow-up on the regular medical floor. Awake and alert in no acute distress. Resting comfortably in bed. Feeling stronger each day. Still short of breath with activity. He is still on 12 L high flow nasal cannula to maintain O2 saturations in the 90s. Completed a course of Remdesivir. Continued on Lovenox, Decadron, vitamin supplements. The patient is seen today 12/16/2020 in follow-up on the regular medical floor. He is currently resting comfortably in bed. Awake and alert in no acute distr ess. He is still on 11 L high flow nasal cannula maintain O2 saturations in the 90s. He remains afebrile. Hemodynamically stable. D-dimer 6.92. LDH 1195. C-reactive protein 46.8. He remains on Lovenox 40 mg subcu twice a day, dexamethasone, vitamin supplements. Chest x-ray reveals persistent but improving CoVID 19 pneumonia. Objective - Vital Signs Vital signs: Vital Signs Temp 97.8 F 04/02/21 17:21 Pulse 63 12/16/20 17:21 Resp 18 12/16/20 17:21 BP 154/84 12/16/20 17:21 Pulse Ox 93 L 12/16/20 17:21 Intake & Output 12/15/20 12/16/20 12/16/20 18:59 06:59 18:59 Weight 90.718 kg Other: Voiding Method Toilet Toilet Urinal Urinal # Voids 2 3 3 - Exam GENERAL EXAM: Alert, pleasant 55-year-old gentleman, on 11 L high flow nasal cannula, comfortable in no apparent distress. HEAD: Normocephalic. EYES: Normal reaction of pupils, equal size. NOSE: Clear with pink turbinates. THROAT: No erythema or exudates. NECK: No masses, no JVD. CHEST: No chest wall deformity. LUNGS: Equal air entry with coarse crackles in the posterior bases CVS: S1 and S2 normal with no audible murmur, regular rhythm. ABDOMEN: No hepatosplenomegaly, normal bowel sounds, no guarding or rigidity. SPINE: No scoliosis or deformity SKIN: No rashes CENTRAL NERVOUS SYSTEM: No focal deficits, tone is normal in all 4 extremities. EXTREMITIES: There is no peripheral edema. No clubbing, no cyanosis. Peripheral pulses are intact. - Labs CBC & Chem 7: 12/10/20 10:13 12/10/20 10:13 Labs: Abnormal Lab Results - Last 24 Hours (Table) 12/16/20 12/16/20 12/16/20 Range/Units 06:56 07:34 07:34 D-Dimer 6.92 H (<0.60) mg/L FEU POC Glucose (mg/dL) 238 H (75-99) mg/dL Lactate Dehydrogenase 1195 H (313-618) U/L C-Reactive Protein 46.8 H (<10.0) mg/L 12/16/20 12/16/20 Range/Units 11:18 16:17 D-Dimer (<0.60) mg/L FEU POC Glucose (mg/dL) 407 H 345 H (75-99) mg/dL Lactate Dehydrogenase (313-618) U/L C-Reactive Protein (<10.0) mg/L Microbiology - Last 24 Hours (Table) 12/10/20 10:13 Blood Culture - Final Blood No Growth after 144 hours 12/10/20 10:13 Blood Culture - Final Blood No Growth after 144 hours Assessment and Plan Assessment: 1 acute COVID 19 related pneumonia. His symptoms started on 12/04/2020. He was diagnosed having CoVID on 12/08/2020 and he was seen in emergency where he was given monoclonal anti-bodies and he was discharged home. Within 2 days, his condition decompensated and he presented with worsening shortness of breath. On today's evaluation, the patient is on 11 L of oxygen by nasal cannula. He completed Remdesivir. Chest x-ray shows continued patchy bilateral airspace disease with some improvement today. 2 acute hypoxic respiratory failure currently on 11 L high flow nasal cannula 3 shortness of breath secondary to above 4 elevated inflammatory markers secondary to above 5 lymphopenia secondary to above 6 hypertension Plan The patient was seen and evaluated by Dr. Owens Chest x-ray and labs reviewed Titrate down the FiO2 as tolerated Discontinue IV Solu-Medrol, initiate prednisone at 30 mg daily We will continue to follow I, the cosigning physician, performed a history & physical examination of the patient. Lungs sounds with coarse crackles bilaterally. Maintaining good O2 saturations in the 90s on 11 L high flow nasal cannula. I discussed the assessment and plan of care with my nurse practitioner, Cherry Reyes. I attest to the above note as dictated by her.
[2020-12-16 20:34] LABS: Glucose,Whole Blood 223 mg/dL (75-99)
[2020-12-16] MEDS ORDERED: methylPREDNISolone SOD SUCCI 40 MG/ML 1 ML VIAL IV SCH (21:00)
[2020-12-16] MEDS ORDERED: INSULIN DETEMIR (LEVEMIR) 100 UNIT/ML SYR SQ SCH (21:00)
[2020-12-16 23:46] LABS: Hemoglobin A1C 7.9 % (4.0-6.0)
[2020-12-17 07:06] LABS: Glucose,Whole Blood 92 mg/dL (75-99)
[2020-12-17] MEDS: INSULIN ASPART (NovoLOG) 100 UNIT/ML VIAL SQ SCH ×4 (08:12→22:38)
[2020-12-17] MEDS: ALBUTEROL HFA INHALER INHALATION PRN ×3 (08:46→20:25)
[2020-12-17] MEDS: ENOXAPARIN 40 MG/0.4 ML SYRINGE SQ SCH ×2 (09:12→22:38)
[2020-12-17] MEDS: ZINC SULFATE 220 MG CAP PO SCH (09:13)
[2020-12-17] MEDS: predniSONE 10 MG TAB PO SCH (09:13)
[2020-12-17] MEDS: ASCORBIC ACID 500 MG TAB PO SCH (09:13)
[2020-12-17] MEDS: PANTOPRAZOLE 40 MG TABLET PO SCH (09:13)
[2020-12-17] MEDS: CHOLECALCIFEROL 25 MCG (1000 IU) TABLET PO SCH (09:13)
[2020-12-17 11:17] LABS: Glucose,Whole Blood 242 mg/dL (75-99)
--- NOTE | 2020-12-17 14:59 | P.PN ---
Subjective Progress Note Date: 12/17/20 Principal diagnosis: CoVID 19 pneumonia 55-year-old male patient was hospitalized for COVID 19 related pneumonia. The patient started getting symptoms approximately a week ago, exactly last Saturday when he started having some body aches and tiredness and some shortness of breath. He came in to the emergency department on 12/08/2020 and he tested positive for occult at 19 and the patient was given monoclonal antibodies and he was discharged home. His condition progressively got more short of breath and he came into the emergency today he was hypoxic and currently is on 4 L about 2 by nasal cannula. He CAT scan of the chest was done and shows diffuse bilateral pulmonary consolidation consistent with COVID 19 related pneumonia. He is having cough. His shortness of breath. No altered mentation. No nausea or vomiting. Inflammatory markers revealed an LDH level 1965 and the patient's CRP is 242 and a d-dimer is at 2.6. CBC shows lymphopenia. Otherwise no other major abnormalities noted. For now, the patient is started on steroids. No other medical problems and comorbidities other than hypertension. Slightly obese and the BMI is 35.4. Today's evaluation of 12/11/2020, the patient is being seen for a follow-up. He is still feeling sick and miserable. Note that the patient had to be admitted yesterday because of worsening shortness of breath and he still on 4 L of oxygen by nasal cannula with a pulse of 91%. He failed convalescent plasma treatment. He is currently on Decadron. He is on day 2 of Humberto. His blood work is showing a d-dimer of 1.6 and the patient on Lovenox 40 mg subcu on a daily basis. His LDH level is improving and is currently down to 1551 and a CRP level is also improving is currently down to 182. Surprisingly the pro-calcitonin level is elevated. He is afebrile. There follow-up chest x-ray was done today and I reviewed it and there is patchy scattered bilateral pulmonary infiltrates in the mid and the upper lung zones without any significant interval change. Patient seen today 12/12/2020 in follow-up on the regular medical floor. He is currently sitting up at the bedside. Awake and alert in no acute distress. Feeling a bit better today compared to yesterday. He is still on 9 L high flow nasal cannula to maintain O2 saturations in the 90s. This is day #3 of Remdesivir. D-dimer 2.27. LDH 592. C-reactive protein 8.2. Pro-calcitonin 0.67. He remains on Lovenox, Decadron, vitamin supplements. The patient is seen today 12/13/2020 in follow-up on the regular medical floor. He is currently resting comfortably in bed. Awake and alert in no acute distress. He is still on 12 L high flow nasal cannula and maintaining O2 saturation in the low 90s. He's been afebrile. This is day #4 of Remdesivir. He is starting to feel better. Less shortness of breath and cough. D-dimer 3.60. LDH 564. C-reactive protein 4.7. Remains on Decadron, Lovenox, vitamin supplements. The patient is seen today 12/14/2020 in follow-up on the regular medical floor. He sitting up in bed. Awake and alert in no acute distress. Feeling a bit better today compared to yesterday. He is maintaining O2 saturations in the 90s on 12 L high flow nasal cannula. He has received his fifth dose of Remdesivir. He remains on Decadron, Lovenox, vitamin supplements. The patient is seen today 12/15/2020 in follow-up on the regular medical floor. Awake and alert in no acute distress. Resting comfortably in bed. Feeling stronger each day. Still short of breath with activity. He is still on 12 L high flow nasal cannula to maintain O2 saturations in the 90s. Completed a course of Remdesivir. Continued on Lovenox, Decadron, vitamin supplements. The patient is seen today 12/16/2020 in follow-up on the regular medical floor. He is currently resting comfortably in bed. Awake and alert in no acute distr ess. He is still on 11 L high flow nasal cannula maintain O2 saturations in the 90s. He remains afebrile. Hemodynamically stable. D-dimer 6.92. LDH 1195. C-reactive protein 46.8. He remains on Lovenox 40 mg subcu twice a day, dexamethasone, vitamin supplements. Chest x-ray reveals persistent but improving CoVID 19 pneumonia. Patient seen today 12/17/2020 in follow-up on the regular medical floor. Awake and alert in no acute distress. Feeling better today compared to yesterday. He is currently down to 6 L high flow nasal cannula with O2 saturation in the 90s. He remains on Lovenox 40 mg subcu twice a day, prednisone, vitamin supplements. Objective - Vital Signs Vital signs: Vital Signs Temp 97.3 F L 12/17/20 13:37 Pulse 68 12/17/20 13:37 Resp 18 12/17/20 13:37 BP 120/69 12/17/20 13:37 Pulse Ox 91 L 12/17/20 13:37 Intake & Output 12/16/20 12/17/20 12/17/20 18:59 06:59 18:59 Weight 90.718 kg Other: Voiding Method Toilet Urinal # Voids 3 1 1 - Exam GENERAL EXAM: Alert, pleasant 55-year-old gentleman, on 6 L high flow nasal cannula, comfortable in no apparent distress. HEAD: Normocephalic. EYES: Normal reaction of pupils, equal size. NOSE: Clear with pink turbinates. THROAT: No erythema or exudates. NECK: No masses, no JVD. CHEST: No chest wall deformity. LUNGS: Equal air entry with coarse crackles in the posterior bases CVS: S1 and S2 normal with no audible murmur, regular rhythm. ABDOMEN: No hepatosplenomegaly, normal bowel sounds, no guarding or rigidity. SPINE: No scoliosis or deformity SKIN: No rashes CENTRAL NERVOUS SYSTEM: No focal deficits, tone is normal in all 4 extremities. EXTREMITIES: There is no peripheral edema. No clubbing, no cyanosis. Peripheral pulses are intact. - Labs CBC & Chem 7: 12/10/20 10:13 12/10/20 10:13 Labs: Abnormal Lab Results - Last 24 Hours (Table) 12/16/20 12/16/20 12/16/20 Range/Units 07:34 16:17 20:33 POC Glucose (mg/dL) 345 H 223 H (75-99) mg/dL Hemoglobin A1c 7.9 H (4.0-6.0) % 12/17/20 Range/Units 11:16 POC Glucose (mg/dL) 242 H (75-99) mg/dL Hemoglobin A1c (4.0-6.0) % Microbiology - Last 24 Hours (Table) 12/10/20 10:13 Blood Culture - Final Blood No Growth after 144 hours 12/10/20 10:13 Blood Culture - Final Blood No Growth after 144 hours Assessment and Plan Assessment: 1 acute COVID 19 related pneumonia. His symptoms started on 12/04/2020. He was diagnosed having CoVID on 12/08/2020 and he was seen in emergency where he was given monoclonal anti-bodies and he was discharged home. Within 2 days, his condition decompensated and he presented with worsening shortness of breath. On today's evaluation, the patient is on 6 L of oxygen by nasal cannula. He completed Remdesivir. 2 acute hypoxic respiratory failure currently on 11 L high flow nasal cannula 3 shortness of breath secondary to above 4 elevated inflammatory markers secondary to above 5 lymphopenia secondary to above 6 hypertension Plan The patient was seen and evaluated by Dr. Owens Titrate down the FiO2 as tolerated Once down to 4 or 5 L could be discharged on home oxygen Continue prednisone, Lovenox, vitamin supplement We will continue to follow I, the cosigning physician, performed a history & physical examination of the patient. Lungs sounds with coarse crackles bilaterally. Maintaining good O2 saturations in the 90s on 6 L high flow nasal cannula. I discussed the assessment and plan of care with my nurse practitioner, Cherry Reyes. I attest to the above note as dictated by her.
--- NOTE | 2020-12-17 15:52 | P.PN ---
Subjective COVID pneumonia Mr. Clements is a 55-year-old male with a past medical history of hypertension, hyperlipidemia coming into the hospital with a chief complaint of shortness of breath cough and persistent fevers. Patient had been in the emergency department on 12/08/2020 for URI-like symptoms and he was tested positive for coronavirus twice. He had a chest x-ray showing bilateral infiltrates and he was not hypoxic so he received monoclonal antibodies and discharged home. But patient had persistent fevers along with sweating that progressively worsening he also became extremely short of breath. In the ED at the time of admission he was found to have a fever of 100.0, heart rate 98, blood pressure 92/60 and saturating at 87% on room air. So the patient was admitted for further management. On reviewing his labs patient was found to have white count of 5.4 with lymphopenia and D-dimer of 2.69 and elevated ferritin 2518, LDH 1965, CRP 242. On 12/12/2019- patient is seen and examined at bedside. He states that he still continues to have exertional dyspnea. He is requiring 4-7 L of oxygen to maintain sats above 90%. Patient denies having any fevers chills or rigors. He complains of generalized weakness and fatigue. Denies having any chest pain or palpitations. No abdominal pain nausea vomiting or diarrhea. No dysuria or hematuria. On reviewing her vitals T-max of 98.6, heart rate in 80s, blood pr essure 146/78. Reviewing his labs from this morning showing d-dimer of 1.62, LDH 1551, CRP 182.2. 12/12/2020 Issue remains on 9 L of oxygen patient is presently on Decadron and day 3 of Remdesivir. Patient is feeling better yet. 12/13/2020 Patient denied any complaints although his respiratory status can use get worse and patient is presently on 10 L of oxygen saturating at 91%. Chest x-ray showed a same infiltrates has a previous x-rays no significant change. Patient d-dimer is also highly elevated to 3.6 and patient is on twice a day of Lovenox and patient is on day 4 of Remdesivir. 05/16/2021 Patient remains on the around 13 L of oxygen completed timed is Remdesivir. Patient although overall feels better, remains on IV fluid which can be discontinued at this time. 12/15/2020 Patient is presently on 4 L of oxygen today, fairly comfortable on this oxygen. 12/16/2020 Patient is to have elevated inflammatory markers including d-dimer of 6.9 to an LDH of 1195. Patient remains on the 11-12 L of oxygen blood sugars are very high patient is not a known diabetic for will be obtained patient had a lot of outside food that was delivered to metastatic not eat as his blood sugars are very high. 12/17/2020 x-ray and patient's onset requirements have gone down a little bit patient is presently on 8 L of oxygen. Patient blood sugars are down today we'll cut down the insulin dose to 15 units and patient seemed globin A1c 7.8 patient is a diabetic. Constitutional: Denied any fatigue denied any fever. Cardio vascular: denied any chest pain, palpitations Gastrointestinal denied any nausea vomiting Pulmonary: Denied any shortness of breath cough Neurologic denied any new focal deficits All inpatient medications were reviewed and appropriate changes in these m edications as dictated in the interval history and assessment and plan. Objective - Vital Signs Vital signs: Vital Signs Temp 97.3 F L 12/17/20 13:37 Pulse 68 12/17/20 13:37 Resp 18 12/17/20 13:37 BP 120/69 12/17/20 13:37 Pulse Ox 91 L 12/17/20 13:37 Intake & Output 12/16/20 12/17/20 12/17/20 18:59 06:59 18:59 Weight 90.718 kg Other: Voiding Method Toilet Urinal # Voids 3 1 1 - Exam PHYSICAL EXAMINATION: GENERAL: The patient is alert and oriented x3, not in any acute distress. On 8 L of nasal cannula saturating at 90% HEENT: Pupils are round and equally reacting to light. EOMI. No scleral icterus. No conjunctival pallor. CARDIOVASCULAR: S1 and S2 present. PULMONARY: Bilatral coarse breath sounds ABDOMEN: Soft, nontender, nondistended, normoactive bowel sounds. No palpable organomegaly. MUSCULOSKELETAL: No joint swelling or deformities EXTREMITIES: No cyanosis, clubbing. No pedal edema NEUROLOGICAL: Gross neurological examination did not reveal any focal deficits. SKIN: No rashes. - Labs CBC & Chem 7: 12/10/20 10:13 12/10/20 10:13 Labs: Abnormal Lab Results - Last 24 Hours (Table) 12/16/20 12/16/20 12/16/20 Range/Units 07:34 16:17 20:33 POC Glucose (mg/dL) 345 H 223 H (75-99) mg/dL Hemoglobin A1c 7.9 H (4.0-6.0) % 12/17/20 Range/Units 11:16 POC Glucose (mg/dL) 242 H (75-99) mg/dL Hemoglobin A1c (4.0-6.0) % Microbiology - Last 24 Hours (Table) 12/10/20 10:13 Blood Culture - Final Blood No Growth after 144 hours 12/10/20 10:13 Blood Culture - Final Blood No Growth after 144 hours Assessment and Plan Plan: Acute hypoxic respiratory failure secondary to Covid pneumonia -some improvement in his is pretty status and is presently on 6 L of oxygen -Hypoglycemia: Secondary to systemic steroids , patient's hemoglobin A1c is consistent with diabetes mellitus patient is newly diagnosed diabetic. Presently on 15 units of long-acting insulin. Probably will be started on oral hypoglycemic agents upon discharge Lymphopenia Hypertension Hyperlipidemia Obesity with BMI of 35.4 -DVT prophylaxis with Lovenox twice a day considering his highly elevated d- dimer. PLAN: Patient completed remdesivir. Patient will be continued on Decadron, Lovenox for DVT prophylaxis, zinc and vitamin D supplements. Patient encouraged to do incentive spirometry. Protonix for GI prophylaxis. We will continue to monitor inflammatory markers and chest x-ray. Further recommendations to follow depending on the progress of the patient.
[2020-12-17 16:45] LABS: Glucose,Whole Blood 286 mg/dL (75-99)
[2020-12-17 21:02] LABS: Glucose,Whole Blood 226 mg/dL (75-99)
[2020-12-17] MEDS: INSULIN DETEMIR (LEVEMIR) 100 UNIT/ML SYR SQ SCH (22:39)
[2020-12-18 07:00] LABS: Glucose,Whole Blood 65 mg/dL (75-99)
[2020-12-18 07:24] LABS: Glucose,Whole Blood 75 mg/dL (75-99)
[2020-12-18] MEDS: INSULIN ASPART (NovoLOG) 100 UNIT/ML VIAL SQ SCH ×4 (08:12→22:42)
[2020-12-18] MEDS: PANTOPRAZOLE 40 MG TABLET PO SCH (08:18)
[2020-12-18] MEDS: ENOXAPARIN 40 MG/0.4 ML SYRINGE SQ SCH ×2 (08:18→22:42)
[2020-12-18] MEDS: ZINC SULFATE 220 MG CAP PO SCH (08:18)
[2020-12-18] MEDS: ASCORBIC ACID 500 MG TAB PO SCH (08:18)
[2020-12-18] MEDS: predniSONE 10 MG TAB PO SCH (08:18)
[2020-12-18] MEDS: CHOLECALCIFEROL 25 MCG (1000 IU) TABLET PO SCH (08:18)
[2020-12-18] MEDS: ALBUTEROL HFA INHALER INHALATION PRN ×2 (08:33→12:29)
[2020-12-18 11:45] LABS: Glucose,Whole Blood 229 mg/dL (75-99)
--- NOTE | 2020-12-18 15:07 | P.PN ---
Subjective Progress Note Date: 12/18/20 Principal diagnosis: CoVID 19 pneumonia 55-year-old male patient was hospitalized for COVID 19 related pneumonia. The patient started getting symptoms approximately a week ago, exactly last Saturday when he started having some body aches and tiredness and some shortness of breath. He came in to the emergency department on 12/08/2020 and he tested positive for occult at 19 and the patient was given monoclonal antibodies and he was discharged home. His condition progressively got more short of breath and he came into the emergency today he was hypoxic and currently is on 4 L about 2 by nasal cannula. He CAT scan of the chest was done and shows diffuse bilateral pulmonary consolidation consistent with COVID 19 related pneumonia. He is having cough. His shortness of breath. No altered mentation. No nausea or vomiting. Inflammatory markers revealed an LDH level 1965 and the patient's CRP is 242 and a d-dimer is at 2.6. CBC shows lymphopenia. Otherwise no other major abnormalities noted. For now, the patient is started on steroids. No other medical problems and comorbidities other than hypertension. Slightly obese and the BMI is 35.4. Today's evaluation of 12/11/2020, the patient is being seen for a follow-up. He is still feeling sick and miserable. Note that the patient had to be admitted yesterday because of worsening shortness of breath and he still on 4 L of oxygen by nasal cannula with a pulse of 91%. He failed convalescent plasma treatment. He is currently on Decadron. He is on day 2 of Humberto. His blood work is showing a d-dimer of 1.6 and the patient on Lovenox 40 mg subcu on a daily basis. His LDH level is improving and is currently down to 1551 and a CRP level is also improving is currently down to 182. Surprisingly the pro-calcitonin level is elevated. He is afebrile. There follow-up chest x-ray was done today and I reviewed it and there is patchy scattered bilateral pulmonary infiltrates in the mid and the upper lung zones without any significant interval change. Patient seen today 12/12/2020 in follow-up on the regular medical floor. He is currently sitting up at the bedside. Awake and alert in no acute distress. Feeling a bit better today compared to yesterday. He is still on 9 L high flow nasal cannula to maintain O2 saturations in the 90s. This is day #3 of Remdesivir. D-dimer 2.27. LDH 592. C-reactive protein 8.2. Pro-calcitonin 0.67. He remains on Lovenox, Decadron, vitamin supplements. The patient is seen today 12/13/2020 in follow-up on the regular medical floor. He is currently resting comfortably in bed. Awake and alert in no acute distress. He is still on 12 L high flow nasal cannula and maintaining O2 saturation in the low 90s. He's been afebrile. This is day #4 of Remdesivir. He is starting to feel better. Less shortness of breath and cough. D-dimer 3.60. LDH 564. C-reactive protein 4.7. Remains on Decadron, Lovenox, vitamin supplements. The patient is seen today 12/14/2020 in follow-up on the regular medical floor. He sitting up in bed. Awake and alert in no acute distress. Feeling a bit better today compared to yesterday. He is maintaining O2 saturations in the 90s on 12 L high flow nasal cannula. He has received his fifth dose of Remdesivir. He remains on Decadron, Lovenox, vitamin supplements. The patient is seen today 12/15/2020 in follow-up on the regular medical floor. Awake and alert in no acute distress. Resting comfortably in bed. Feeling stronger each day. Still short of breath with activity. He is still on 12 L high flow nasal cannula to maintain O2 saturations in the 90s. Completed a course of Remdesivir. Continued on Lovenox, Decadron, vitamin supplements. The patient is seen today 12/16/2020 in follow-up on the regular medical floor. He is currently resting comfortably in bed. Awake and alert in no acute distr ess. He is still on 11 L high flow nasal cannula maintain O2 saturations in the 90s. He remains afebrile. Hemodynamically stable. D-dimer 6.92. LDH 1195. C-reactive protein 46.8. He remains on Lovenox 40 mg subcu twice a day, dexamethasone, vitamin supplements. Chest x-ray reveals persistent but improving CoVID 19 pneumonia. Patient seen today 12/17/2020 in follow-up on the regular medical floor. Awake and alert in no acute distress. Feeling better today compared to yesterday. He is currently down to 6 L high flow nasal cannula with O2 saturation in the 90s. He remains on Lovenox 40 mg subcu twice a day, prednisone, vitamin supplements. The patient is seen today 12/18/2020 in follow-up on the regular medical floor. Currently resting comfortably in bed. Awake and alert in no acute distress. He is currently on 6 L high flow nasal cannula maintain O2 saturations in the low 90s. He is feeling a bit better today. Getting stronger. Less short of breath with minimal activity. He remains on Lovenox, prednisone, vitamin supplements. Objective - Vital Signs Vital signs: Vital Signs Temp 98.4 F 12/18/20 14:00 Pulse 77 12/18/20 14:00 Resp 18 12/18/20 14:00 BP 118/79 12/18/20 14:00 Pulse Ox 93 L 12/18/20 14:00 Intake & Output 12/17/20 12/18/20 12/18/20 18:59 06:59 18:59 Weight 90.718 kg Other: Voiding Method Toilet Urinal # Voids 1 2 - Exam GENERAL EXAM: Alert, pleasant 55-year-old gentleman, on 6 L high flow nasal cannula, comfortable in no apparent distress. HEAD: Normocephalic. EYES: Normal reaction of pupils, equal size. NOSE: Clear with pink turbinates. THROAT: No erythema or exudates. NECK: No masses, no JVD. CHEST: No chest wall deformity. LUNGS: Equal air entry with coarse crackles in the posterior bases CVS: S1 and S2 normal with no audible murmur, regular rhythm. ABDOMEN: No hepatosplenomegaly, normal bowel sounds, no guarding or rigidity. SPINE: No scoliosis or deformity SKIN: No rashes CENTRAL NERVOUS SYSTEM: No focal deficits, tone is normal in all 4 extremities. EXTREMITIES: There is no peripheral edema. No clubbing, no cyanosis. Peripheral pulses are intact. - Labs CBC & Chem 7: 12/10/20 10:13 12/10/20 10:13 Labs: Abnormal Lab Results - Last 24 Hours (Table) 12/17/20 12/17/20 12/18/20 Range/Units 16:41 21:00 06:57 POC Glucose (mg/dL) 286 H 226 H 65 L (75-99) mg/dL 12/18/20 Range/Units 11:30 POC Glucose (mg/dL) 229 H (75-99) mg/dL Assessment and Plan Assessment: 1 acute COVID 19 related pneumonia. His symptoms started on 12/04/2020. He was diagnosed having CoVID on 12/08/2020 and he was seen in emergency where he was given monoclonal anti-bodies and he was discharged home. Within 2 days, his condition decompensated and he presented with worsening shortness of breath. On today's evaluation, the patient is on 6 L of oxygen by nasal cannula. He completed Remdesivir. 2 acute hypoxic respiratory failure currently on 11 L high flow nasal cannula 3 shortness of breath secondary to above 4 elevated inflammatory markers secondary to above 5 lymphopenia secondary to above 6 hypertension Plan The patient was seen and evaluated by Dr. Owens He has been slow to progress Follow-up chest x-ray and labs in a.m. Titrate down the FiO2 as tolerated Once down to 4 or 5 L could be discharged on home oxygen Continue prednisone, Lovenox, vitamin supplement We will continue to follow I, the cosigning physician, performed a history & physical examination of the patient. Lungs sounds with coarse crackles bilaterally. Maintaining good O2 saturations in the 90s on 6 L high flow nasal cannula. I discussed the assessment and plan of care with my nurse practitioner, Cherry Reyes. I attest to the above note as dictated by her.
[2020-12-18 16:58] LABS: Glucose,Whole Blood 236 mg/dL (75-99)
--- NOTE | 2020-12-18 17:10 | P.PN ---
Subjective COVID pneumonia Mr. Clements is a 55-year-old male with a past medical history of hypertension, hyperlipidemia coming into the hospital with a chief complaint of shortness of breath cough and persistent fevers. Patient had been in the emergency department on 12/08/2020 for URI-like symptoms and he was tested positive for coronavirus twice. He had a chest x-ray showing bilateral infiltrates and he was not hypoxic so he received monoclonal antibodies and discharged home. But patient had persistent fevers along with sweating that progressively worsening he also became extremely short of breath. In the ED at the time of admission he was found to have a fever of 100.0, heart rate 98, blood pressure 92/60 and saturating at 87% on room air. So the patient was admitted for further management. On reviewing his labs patient was found to have white count of 5.4 with lymphopenia and D-dimer of 2.69 and elevated ferritin 2518, LDH 1965, CRP 242. On 12/12/2019- patient is seen and examined at bedside. He states that he still continues to have exertional dyspnea. He is requiring 4-7 L of oxygen to maintain sats above 90%. Patient denies having any fevers chills or rigors. He complains of generalized weakness and fatigue. Denies having any chest pain or palpitations. No abdominal pain nausea vomiting or diarrhea. No dysuria or hematuria. On reviewing her vitals T-max of 98.6, heart rate in 80s, blood pr essure 146/78. Reviewing his labs from this morning showing d-dimer of 1.62, LDH 1551, CRP 182.2. 12/12/2020 Issue remains on 9 L of oxygen patient is presently on Decadron and day 3 of Remdesivir. Patient is feeling better yet. 12/13/2020 Patient denied any complaints although his respiratory status can use get worse and patient is presently on 10 L of oxygen saturating at 91%. Chest x-ray showed a same infiltrates has a previous x-rays no significant change. Patient d-dimer is also highly elevated to 3.6 and patient is on twice a day of Lovenox and patient is on day 4 of Remdesivir. 05/16/2021 Patient remains on the around 13 L of oxygen completed timed is Remdesivir. Patient although overall feels better, remains on IV fluid which can be discontinued at this time. 12/15/2020 Patient is presently on 4 L of oxygen today, fairly comfortable on this oxygen. 12/16/2020 Patient is to have elevated inflammatory markers including d-dimer of 6.9 to an LDH of 1195. Patient remains on the 11-12 L of oxygen blood sugars are very high patient is not a known diabetic for will be obtained patient had a lot of outside food that was delivered to metastatic not eat as his blood sugars are very high. 12/17/2020 x-ray and patient's onset requirements have gone down a little bit patient is presently on 8 L of oxygen. Patient blood sugars are down today we'll cut down the insulin dose to 15 units and patient seemed globin A1c 7.8 patient is a diabetic. 12/18/2020 Patient is Presalin 6 L of oxygen improving slowly. Blood sugars are fluctuating Constitutional: Denied any fatigue denied any fever. Cardio vascular: denied any chest pain, palpitations Gastrointestinal denied any nausea vomiting Pulmonary: Denied any shortness of breath cough Neurologic denied any new focal deficits All inpatient medications were reviewed and appropriate changes in these medicat ions as dictated in the interval history and assessment and plan. Objective - Vital Signs Vital signs: Vital Signs Temp 98.4 F 12/18/20 14:00 Pulse 77 12/18/20 14:00 Resp 18 12/18/20 14:00 BP 118/79 12/18/20 14:00 Pulse Ox 93 L 12/18/20 14:00 Intake & Output 12/17/20 12/18/20 12/18/20 18:59 06:59 18:59 Weight 90.718 kg Other: Voiding Method Toilet Urinal # Voids 1 2 - Exam PHYSICAL EXAMINATION: GENERAL: The patient is alert and oriented x3, not in any acute distress. On 8 L of nasal cannula saturating at 90% HEENT: Pupils are round and equally reacting to light. EOMI. No scleral icterus. No conjunctival pallor. CARDIOVASCULAR: S1 and S2 present. PULMONARY: Bilatral coarse breath sounds ABDOMEN: Soft, nontender, nondistended, normoactive bowel sounds. No palpable organomegaly. MUSCULOSKELETAL: No joint swelling or deformities EXTREMITIES: No cyanosis, clubbing. No pedal edema NEUROLOGICAL: Gross neurological examination did not reveal any focal deficits. SKIN: No rashes. - Labs CBC & Chem 7: 12/10/20 10:13 12/10/20 10:13 Labs: Abnormal Lab Results - Last 24 Hours (Table) 12/17/20 12/18/20 12/18/20 Range/Units 21:00 06:57 11:30 POC Glucose (mg/dL) 226 H 65 L 229 H (75-99) mg/dL 12/18/20 Range/Units 16:57 POC Glucose (mg/dL) 236 H (75-99) mg/dL Assessment and Plan Plan: Acute hypoxic respiratory failure secondary to Covid pneumonia -some improvement in his is pretty status and is presently on 6 L of oxygen -Hypoglycemia: Secondary to systemic steroids , patient's hemoglobin A1c is consistent with diabetes mellitus patient is newly diagnosed diabetic. Presently on 15 units of long-acting insulin. Probably will be started on oral hypoglycemic agents upon discharge Lymphopenia Hypertension Hyperlipidemia Obesity with BMI of 35.4 -DVT prophylaxis with Lovenox twice a day considering his highly elevated d- dimer. PLAN: Patient completed remdesivir. Patient will be continued on Decadron, Lovenox for DVT prophylaxis, zinc and vitamin D supplements. Patient encouraged to do incentive spirometry. Protonix for GI prophylaxis. We will continue to monitor inflammatory markers and chest x-ray. Further recommendations to follow depending on the progress of the patient.
[2020-12-18 20:54] LABS: Glucose,Whole Blood 146 mg/dL (75-99)
[2020-12-18] MEDS: INSULIN DETEMIR (LEVEMIR) 100 UNIT/ML SYR SQ SCH (22:42)
[2020-12-19 07:06] LABS: Glucose,Whole Blood 68 mg/dL (75-99)
[2020-12-19 07:19] LABS: Glucose,Whole Blood 72 mg/dL (75-99)
--- NOTE | 2020-12-19 08:29 | XR ---
EXAMINATION TYPE: XR chest 1V portable DATE OF EXAM: 12/19/2020 Comparison: 12/16/2020 Clinical History: 55-year-old male CoVID pneumonia Findings: Heart upper limits of normal in size. Continued patchy peripheral interstitial opacities bilaterally. No significant change. No pleural effusion. Impression: Continued patchy bilateral COVID pneumonia.
[2020-12-19] MEDS: INSULIN ASPART (NovoLOG) 100 UNIT/ML VIAL SQ SCH ×4 (08:36→20:28)
[2020-12-19] MEDS: ENOXAPARIN 40 MG/0.4 ML SYRINGE SQ SCH ×2 (08:39→20:28)
[2020-12-19] MEDS: PANTOPRAZOLE 40 MG TABLET PO SCH (08:40)
[2020-12-19] MEDS: predniSONE 10 MG TAB PO SCH (08:40)
[2020-12-19] MEDS: ZINC SULFATE 220 MG CAP PO SCH (08:40)
[2020-12-19] MEDS: ASCORBIC ACID 500 MG TAB PO SCH (08:40)
[2020-12-19] MEDS: CHOLECALCIFEROL 25 MCG (1000 IU) TABLET PO SCH (08:40)
[2020-12-19] MEDS: ALBUTEROL HFA INHALER INHALATION PRN ×3 (08:57→19:23)
[2020-12-19 11:24] LABS: Glucose,Whole Blood 122 mg/dL (75-99)
--- NOTE | 2020-12-19 14:25 | P.PN ---
Subjective COVID pneumonia Mr. Clements is a 55-year-old male with a past medical history of hypertension, hyperlipidemia coming into the hospital with a chief complaint of shortness of breath cough and persistent fevers. Patient had been in the emergency department on 12/08/2020 for URI-like symptoms and he was tested positive for coronavirus twice. He had a chest x-ray showing bilateral infiltrates and he was not hypoxic so he received monoclonal antibodies and discharged home. But patient had persistent fevers along with sweating that progressively worsening he also became extremely short of breath. In the ED at the time of admission he was found to have a fever of 100.0, heart rate 98, blood pressure 92/60 and saturating at 87% on room air. So the patient was admitted for further management. On reviewing his labs patient was found to have white count of 5.4 with lymphopenia and D-dimer of 2.69 and elevated ferritin 2518, LDH 1965, CRP 242. On 12/12/2019- patient is seen and examined at bedside. He states that he still continues to have exertional dyspnea. He is requiring 4-7 L of oxygen to maintain sats above 90%. Patient denies having any fevers chills or rigors. He complains of generalized weakness and fatigue. Denies having any chest pain or palpitations. No abdominal pain nausea vomiting or diarrhea. No dysuria or hematuria. On reviewing her vitals T-max of 98.6, heart rate in 80s, blood pr essure 146/78. Reviewing his labs from this morning showing d-dimer of 1.62, LDH 1551, CRP 182.2. 12/12/2020 Issue remains on 9 L of oxygen patient is presently on Decadron and day 3 of Remdesivir. Patient is feeling better yet. 12/13/2020 Patient denied any complaints although his respiratory status can use get worse and patient is presently on 10 L of oxygen saturating at 91%. Chest x-ray showed a same infiltrates has a previous x-rays no significant change. Patient d-dimer is also highly elevated to 3.6 and patient is on twice a day of Lovenox and patient is on day 4 of Remdesivir. 05/16/2021 Patient remains on the around 13 L of oxygen completed timed is Remdesivir. Patient although overall feels better, remains on IV fluid which can be discontinued at this time. 12/15/2020 Patient is presently on 4 L of oxygen today, fairly comfortable on this oxygen. 12/16/2020 Patient is to have elevated inflammatory markers including d-dimer of 6.9 to an LDH of 1195. Patient remains on the 11-12 L of oxygen blood sugars are very high patient is not a known diabetic for will be obtained patient had a lot of outside food that was delivered to metastatic not eat as his blood sugars are very high. 12/17/2020 x-ray and patient's onset requirements have gone down a little bit patient is presently on 8 L of oxygen. Patient blood sugars are down today we'll cut down the insulin dose to 15 units and patient seemed globin A1c 7.8 patient is a diabetic. 12/18/2020 Patient is Presalin 6 L of oxygen improving slowly. Blood sugars are fluctuating 12/19/2020 Patient respiratory status improved and presently on 4 L of oxygen most probably will be able to wean him off completely of oxygen tomorrow possibility of discharge tomorrow, long-acting insulin will be discontinued patient is on prednisone 20 mg daily at this time patient is on sliding scale at this time. P atient probably will be discharged on metformin although metformin will not be helpful in treating steroid-induced hyperglycemia. Patient's hemoglobin A1c 7.8 Constitutional: Denied any fatigue denied any fever. Cardio vascular: denied any chest pain, palpitations Gastrointestinal denied any nausea vomiting Pulmonary: Denied any shortness of breath cough Neurologic denied any new focal deficits All inpatient medications were reviewed and appropriate changes in these medications as dictated in the interval history and assessment and plan. Objective - Vital Signs Vital signs: Vital Signs Temp 98.6 F 12/19/20 08:22 Pulse 67 12/19/20 08:22 Resp 18 12/19/20 08:22 BP 98/62 12/19/20 08:22 Pulse Ox 95 12/19/20 08:57 Intake & Output 12/18/20 12/19/20 12/19/20 18:59 06:59 18:59 Output Total 525 Balance -525 Output: Urine 525 Other: Voiding Method Toilet Urinal # Voids 3 3 - Exam PHYSICAL EXAMINATION: GENERAL: The patient is alert and oriented x3, not in any acute distress. On 8 L of nasal cannula saturating at 90% HEENT: Pupils are round and equally reacting to light. EOMI. No scleral icterus. No conjunctival pallor. CARDIOVASCULAR: S1 and S2 present. PULMONARY: Bilatral coarse breath sounds ABDOMEN: Soft, nontender, nondistended, normoactive bowel sounds. No palpable organomegaly. MUSCULOSKELETAL: No joint swelling or deformities EXTREMITIES: No cyanosis, clubbing. No pedal edema NEUROLOGICAL: Gross neurological examination did not reveal any focal deficits. SKIN: No rashes. - Labs CBC & Chem 7: 12/10/20 10:13 12/10/20 10:13 Labs: Abnormal Lab Results - Last 24 Hours (Table) 12/18/20 12/18/20 12/19/20 Range/Units 16:57 20:43 07:03 D-Dimer (<0.60) mg/L FEU POC Glucose (mg/dL) 236 H 146 H 68 L (75-99) mg/dL 12/19/20 12/19/20 12/19/20 Range/Units 07:06 07:18 11:22 D-Dimer 3.33 H (<0.60) mg/L FEU POC Glucose (mg/dL) 72 L 122 H (75-99) mg/dL Assessment and Plan Plan: Acute hypoxic respiratory failure secondary to Covid pneumonia -some improvement in his is pretty status and is presently on 4 L of oxygen -Hypoglycemia: Secondary to systemic steroids , continue sliding scale insulin neck -Newly diagnosed diabetes mellitus type 2: Patient will be discharged on metformin Lymphopenia Hypertension Hyperlipidemia Obesity with BMI of 35.4 -DVT prophylaxis with Lovenox twice a day considering his highly elevated d- dimer. PLAN: Patient completed remdesivir. Patient will be continued on Decadron, Lovenox for DVT prophylaxis, zinc and vitamin D supplements. Patient encouraged to do incentive spirometry. Protonix for GI prophylaxis. We will continue to monitor inflammatory markers and chest x-ray. Further recommendations to follow depending on the progress of the patient.
[2020-12-19 16:58] LABS: Glucose,Whole Blood 293 mg/dL (75-99)
--- NOTE | 2020-12-19 19:36 | P.PN ---
Subjective Progress Note Date: 12/19/20 Principal diagnosis: COVID 19 55-year-old male patient was hospitalized for COVID 19 related pneumonia. The patient started getting symptoms approximately a week ago, exactly last Saturday when he started having some body aches and tiredness and some shortness of breath. He came in to the emergency department on 12/08/2020 and he tested positive for occult at 19 and the patient was given monoclonal antibodies and he was discharged home. His condition progressively got more short of breath and he came into the emergency today he was hypoxic and currently is on 4 L about 2 by nasal cannula. He CAT scan of the chest was done and shows diffuse bilateral pulmonary consolidation consistent with COVID 19 related pneumonia. He is having cough. His shortness of breath. No altered mentation. No nausea or vomiting. Inflammatory markers revealed an LDH level 1965 and the patient's CRP is 242 and a d-dimer is at 2.6. CBC shows lymphopenia. Otherwise no other major abnormalities noted. For now, the patient is started on steroids. No other medical problems and comorbidities other than hypertension. Slightly obese and the BMI is 35.4. Today's evaluation of 12/11/2020, the patient is being seen for a follow-up. He is still feeling sick and miserable. Note that the patient had to be admitted yesterday because of worsening shortness of breath and he still on 4 L of oxygen by nasal cannula with a pulse of 91%. He failed convalescent plasma treatment. He is currently on Decadron. He is on day 2 of [place]. His blood work is showing a d-dimer of 1.6 and the patient on Lovenox 40 mg subcu on a daily basis. His LDH level is improving and is currently down to 1551 and a CRP level is also improving is currently down to 182. Surprisingly the pro-calcitonin level is elevated. He is afebrile. There follow-up chest x-ray was done today and I reviewed it and there is patchy scattered bilateral pulmonary infiltrates in the mid and the upper lung zones without any significant interval change. Patient seen today 12/12/2020 in follow-up on the regular medical floor. He is currently sitting up at the bedside. Awake and alert in no acute distress. F eeling a bit better today compared to yesterday. He is still on 9 L high flow nasal cannula to maintain O2 saturations in the 90s. This is day #3 of Remdesivir. D-dimer 2.27. LDH 592. C-reactive protein 8.2. Pro-calcitonin 0.67. He remains on Lovenox, Decadron, vitamin supplements. The patient is seen today 12/13/2020 in follow-up on the regular medical floor. He is currently resting comfortably in bed. Awake and alert in no acute distress. He is still on 12 L high flow nasal cannula and maintaining O2 saturation in the low 90s. He's been afebrile. This is day #4 of Remdesivir. He is starting to feel better. Less shortness of breath and cough. D-dimer 3.60. LDH 564. C-reactive protein 4.7. Remains on Decadron, Lovenox, vitamin supplements. The patient is seen today 12/14/2020 in follow-up on the regular medical floor. He sitting up in bed. Awake and alert in no acute distress. Feeling a bit better today compared to yesterday. He is maintaining O2 saturations in the 90s on 12 L high flow nasal cannula. He has received his fifth dose of Remdesivir. He remains on Decadron, Lovenox, vitamin supplements. The patient is seen today 12/15/2020 in follow-up on the regular medical floor. Awake and alert in no acute distress. Resting comfortably in bed. Feeling stronger each day. Still short of breath with activity. He is still on 12 L high flow nasal cannula to maintain O2 saturations in the 90s. Completed a course of Remdesivir. Continued on Lovenox, Decadron, vitamin supplements. The patient is seen today 12/16/2020 in follow-up on the regular medical floor. He is currently resting comfortably in bed. Awake and alert in no acute distress. He is still on 11 L high flow nasal cannula maintain O2 saturations in the 90s. He remains afebrile. Hemodynamically stable. D-dimer 6.92. LDH 1195. C-reactive protein 46.8. He remains on Lovenox 40 mg subcu twice a day, dexamethasone, vitamin supplements. Chest x-ray reveals persistent but imp roving CoVID 19 pneumonia. Patient seen today 12/17/2020 in follow-up on the regular medical floor. Awake and alert in no acute distress. Feeling better today compared to yesterday. He is currently down to 6 L high flow nasal cannula with O2 saturation in the 90s. He remains on Lovenox 40 mg subcu twice a day, prednisone, vitamin supplements. The patient is seen today 12/18/2020 in follow-up on the regular medical floor. Currently resting comfortably in bed. Awake and alert in no acute distress. He is currently on 6 L high flow nasal cannula maintain O2 saturations in the low 90s. He is feeling a bit better today. Getting stronger. Less short of breath with minimal activity. He remains on Lovenox, prednisone, vitamin supplements. On 12/19/2030 patient seen in follow-up on medical floor, is awake and alert, he is interested his oxygen pulse ox is 93%, his FiO2 is being weaned down, no worsening dyspnea, he does get short of breath with exertion, but appears to be breathing comfortably at rest, no fever or chills, hemodynamically stable, no complaints of chest pain worsening cough. He is improving, last chest x-ray was today showing continued patchy bilateral Covid pneumonia. Patient completed his course of Remdesivir. His last LDH was a few days ago on 12/16/2020 and was at that time trending up from his baseline LDH, and CRP was also trending up from his baseline CRP. We'll obtain follow-up inflammatory markers, however his latest d-dimer today is showing a trend down, and is down to 3.33 from 6.92. Lovenox is 40 mg twice daily and patient's on prednisone 20 mg daily in addition to vitamins. Objective - Vital Signs Vital signs: Vital Signs Temp 98.5 F 12/19/20 17:41 Pulse 67 12/19/20 17:41 Resp 18 12/19/20 17:41 BP 116/75 12/19/20 17:41 Pulse Ox 93 L 12/19/20 17:41 Intake & Output 12/19/20 12/19/20 12/20/20 06:59 18:59 06:59 Output Total 525 Balance -525 Output: Urine 525 Other: Voiding Method Toilet Toilet Urinal # Voids 3 2 - Exam GENERAL EXAM: Alert, very pleasant 55-year-old white male, on 3 L of oxygen with pulse ox of 93% comfortable in no apparent distress. HEAD: Normocephalic/atraumatic. EYES: Normal reaction of pupils, equal size. Conjunctiva pink, sclera white. NOSE: Clear with pink turbinates. THROAT: No erythema or exudates. NECK: No masses, no JVD, no thyroid enlargement, no adenopathy. CHEST: No chest wall deformity. Symmetrical expansion. LUNGS: Equal air entry with no crackles, wheeze, rhonchi or dullness. CVS: Regular rate and rhythm, normal S1 and S2, no gallops, no murmurs, no rubs ABDOMEN: Soft, nontender. No hepatosplenomegaly, normal bowel sounds, no guarding or rigidity. EXTREMITIES: No clubbing, no edema, no cyanosis, 2+ pulses and upper and lower extremities. MUSCULOSKELETAL: Muscle strength and tone normal. SPINE: No scoliosis or deformity SKIN: No rashes CENTRAL NERVOUS SYSTEM: Alert and oriented -3. No focal deficits, tone is normal in all 4 extremities. PSYCHIATRIC: Alert and oriented -3. Appropriate affect. Intact judgment and insight. - Labs CBC & Chem 7: 12/10/20 10:13 12/10/20 10:13 Labs: Abnormal Lab Results - Last 24 Hours (Table) 12/18/20 12/19/20 12/19/20 Range/Units 20:43 07:03 07:06 D-Dimer 3.33 H (<0.60) mg/L FEU POC Glucose (mg/dL) 146 H 68 L (75-99) mg/dL 12/19/20 12/19/20 12/19/20 Range/Units 07:18 11:22 16:56 D-Dimer (<0.60) mg/L FEU POC Glucose (mg/dL) 72 L 122 H 293 H (75-99) mg/dL Assessment and Plan Plan: Assessment: 1 acute COVID 19 related pneumonia. His symptoms started on 12/04/2020. He was diagnosed having CoVID on 12/08/2020 and he was seen in emergency where he was given monoclonal anti-bodies and he was discharged home. Within 2 days, his condition decompensated and he presented with worsening shortness of breath. On today's evaluation, the patient is on 6 L of oxygen by nasal cannula. He completed Remdesivir. 2 acute hypoxic respiratory failure currently on 11 L high flow nasal cannula 3 shortness of breath secondary to above 4 elevated inflammatory markers secondary to above 5 lymphopenia secondary to above 6 hypertension Plan: Continue current medical treatment, continue weaning FiO2, follow-up d-dimer in the morning, continue current dose prednisone, and Lovenox, we'll obtain follow- up LDH and CRP as well, patient completed course of Remdesivir, clinically he is improving, from pulmonary perspective if there is no further worsening dyspnea or hypoxia patient may be considered for discharge home next 24 hours, we will obtain home oxygen assessment in the morning (home oxygen needs I performed a history & physical examination of the patient and discussed their management with my nurse practitioner, Nely Paul. I reviewed the nurse practitioner's note and agree with the documented findings and plan of care. Lung sounds are positive for diminished breath sounds The findings and the impression was discussed with the patient. I attest to the documentation by the nurse practitioner. Time with Patient: Less than 30
[2020-12-19 20:31] LABS: Glucose,Whole Blood 213 mg/dL (75-99)
[2020-12-19 21:19] LABS: C Reactive Protein 1.2 mg/dL (0.0-0.8)
[2020-12-20 06:50] VITALS: TEMP 98.3
[2020-12-20 06:54] LABS: Glucose,Whole Blood 129 mg/dL (75-99)
[2020-12-20] MEDS: INSULIN ASPART (NovoLOG) 100 UNIT/ML VIAL SQ SCH ×2 (08:02→11:40)
[2020-12-20] MEDS: CHOLECALCIFEROL 25 MCG (1000 IU) TABLET PO SCH (08:07)
[2020-12-20] MEDS: PANTOPRAZOLE 40 MG TABLET PO SCH (08:07)
[2020-12-20] MEDS: ZINC SULFATE 220 MG CAP PO SCH (08:07)
[2020-12-20] MEDS: ASCORBIC ACID 500 MG TAB PO SCH (08:07)
[2020-12-20] MEDS: ENOXAPARIN 40 MG/0.4 ML SYRINGE SQ SCH (08:08)
[2020-12-20] MEDS ORDERED: predniSONE 20 MG TAB PO SCH (09:00)
[2020-12-20] MEDS: ALBUTEROL HFA INHALER INHALATION PRN ×2 (09:13→13:32)
[2020-12-20 11:05] VITALS: BP 112/74; PULSE 69; RESP 18
[2020-12-20 11:34] LABS: Glucose,Whole Blood 241 mg/dL (75-99)
--- NOTE | 2020-12-20 12:08 | XR ---
EXAMINATION TYPE: XR chest 1V portable DATE OF EXAM: 12/20/2020 COMPARISON: 12/19/2020 INDICATION: Covid TECHNIQUE: Single frontal view of the chest is obtained. FINDINGS: The heart size is normal. The pulmonary vasculature is normal. Patchy peripheral infiltrates are present nonspecific can be related to atypical pneumonia. IMPRESSION: 1. Peripheral bilateral lung infiltrates can be compatible with atypical pneumonia
--- NOTE | 2020-12-20 15:05 | P.PN ---
Subjective Progress Note Date: 12/20/20 Principal diagnosis: Acute hypoxic respiratory failure secondary to covid19 pneumonia On 12/19/2030 patient seen in follow-up on medical floor, is awake and alert, he is interested his oxygen pulse ox is 93%, his FiO2 is being weaned down, no worsening dyspnea, he does get short of breath with exertion, but appears to be breathing comfortably at rest, no fever or chills, hemodynamically stable, no complaints of chest pain worsening cough. He is improving, last chest x-ray was today showing continued patchy bilateral Covid pneumonia. Patient completed his course of Remdesivir. His last LDH was a few days ago on 12/16/2020 and was at that time trending up from his baseline LDH, and CRP was also trending up from his baseline CRP. We'll obtain follow-up inflammatory markers, however his latest d-dimer today is showing a trend down, and is down to 3.33 from 6.92. Lovenox is 40 mg twice daily and patient's on prednisone 20 mg daily in addition to vitamins. Patient was reevaluated today on 12/20/2020, patient is doing great, he is down to 3 L nasal cannula, and we are anticipating to send the patient home today. Patient is asymptomatic, no cough no wheezing no shortness of breath, he has slight dyspnea on exertion, and he qualified for home oxygen. D-dimer today is trending down and it is 2.70. LDH is 347 significantly improved and C-reactive protein is 1.2 significantly improved Objective - Vital Signs Vital signs: Vital Signs Temp 98.3 F 12/20/20 10:00 Pulse 69 12/20/20 10:00 Resp 18 12/20/20 10:00 BP 112/74 12/20/20 10:00 Pulse Ox 93 L 12/20/20 10:00 Intake & Output 12/19/20 12/20/20 12/20/20 18:59 06:59 18:59 Other: Voiding Method Toilet Toilet # Voids 2 2 - Exam Physical Exam: Revealed a 55-year-old white male on 3 L nasal cannula, in no distress. HEENT:[Neck is supple.] [No neck masses.] [No thyromegaly.] [No JVD.] Chest: [Clear throughout, no crackles, no rhonchi, no wheezes.] Cardiac Exam: [Normal S1 and S2, no S3 gallop, no murmur.] Abdomen: [Soft, nontender, no megaly, no rebound, no guarding, normal bowel sounds.] Extremities: [No clubbing, no edema, no cyanosis.] Neurological Exam: [No focal neurologic deficit.] Psychiatric: Normal mood affect and normal mental status examination. HEENT: No rashes. - Labs CBC & Chem 7: 12/10/20 10:13 12/10/20 10:13 Labs: Abnormal Lab Results - Last 24 Hours (Table) 12/19/20 12/19/20 12/19/20 Range/Units 07:06 16:56 20:25 D-Dimer (<0.60) mg/L FEU POC Glucose (mg/dL) 293 H 213 H (75-99) mg/dL Lactate Dehydrogenase 347 H (120-246) U/L C-Reactive Protein 1.2 H (0.0-0.8) mg/dL 12/20/20 12/20/20 12/20/20 Range/Units 06:53 07:06 11:33 D-Dimer 2.70 H (<0.60) mg/L FEU POC Glucose (mg/dL) 129 H 241 H (75-99) mg/dL Lactate Dehydrogenase (120-246) U/L C-Reactive Protein (0.0-0.8) mg/dL Assessment and Plan Assessment: Impression: Acute hypoxic respiratory failure secondary to covid 19 pneumonia History of benign essential hypertension. Dyspnea on exertion secondary to above. Recommendation: Agree with discharge planning today. Patient is going home with oxygen at 3 L. Continue at least 10 days of prednisone at 20 mg daily and could be tapered on outpatient basis. No need for anticoagulation therapy all along as the patient remains active. Would definitely consider taking aspirin daily. Follow-up on outpatient basis in few weeks Time with Patient: Less than 30
--- NOTE | 2020-12-20 16:37 | P.DS ---
Providers Date of admission: 12/10/20 11:43 Expected date of discharge: 12/20/20 Attending physician: Liana Pedraza Consults: 12/10/20 13:13 Consult Physician Stat Consulting Provider: Sergio Alejandro Consult Reason/Comments: Covid pneumonia, hypoxia Do you want consulting provider notified?: Yes Primary care physician: Jelly Osborne Hospital Course: Final diagnosis -Acute hypoxic respiratory failure secondary to Covid pneumonia -Hyperglycemia: Secondary to systemic steroids -Newly diagnosed diabetes mellitus type 2: Patient will be discharged on metformin -Lymphopenia -Hypertension -Hyperlipidemia -Obesity with BMI of 35.4 -DVT prophylaxis Discharge disposition Patient is being discharged in a stable condition with guarded prognosis to home. Patient will follow-up with Dr. Osborne in the outpatient setting upon discharge. Patient is also to follow-up with pulmonary in the next few weeks. Patient will require home oxygen secondary to Covid 19 and will continue dexamethasone along with vitamin C and zinc supplements. Total time taken is greater than 35 minutes. Hospital course This is a 55-year-old male who was recently admitted with shortness of breath, cough, and persistent fevers and was found to be positive for Covid. Patient initially was sent home after receiving monoclonal antibodies and came back with progressively worsening symptoms and extreme shortness of breath and was maintained on oxygen. Patient will follow up with pulmonary in the outpatient setting and will be requiring 3 L of oxygen upon discharge. Patient instructed to follow-up with primary care provider. Hemoglobin A1c was done during hospitalization showing 7.9 and will start metformin 500 mg twice daily. Blood sugars expected to be elevated as patient has been maintained on steroids and will continue dexamethasone to complete the course. Patient will need to follow-up with primary care provider to discuss medications and testing and that with glucometer. Currently no reports of chest pain, shortness of breath, or palpitations. Patient is afebrile. No reports of nausea or vomiting and patient is tolerating diet. Patient will be discharged home today. On exam vital signs are stable. Cardio S1, S2 are muffled. Respiratory system shows diminished breath sounds at the bases with no wheezing or rhonchi noted. Abdomen is soft and nontender. Nervous system shows focal deficits. Please refer to medication reconciliation sheet for a list of medications. Patient Condition at Discharge: Stable Plan - Discharge Summary Discharge Rx Participant: No New Discharge Prescriptions: New metFORMIN HCL 500 mg PO BID 30 Days #60 tablet predniSONE 10 mg PO DIRECTED #10 tab Acetaminophen Tab [Tylenol] 650 mg PO Q6HR PRN #30 tab PRN Reason: Mild Pain Or Fever > 100.5 Albuterol Inhaler [Ventolin Hfa Inhaler] 2 puff INHALATION RT-Q6H PRN 30 Days #1 puff PRN Reason: Shortness Of Breath Or Wheezing Ascorbic Acid [Vitamin C] 1,000 mg PO DAILY 30 Days #60 tab Cholecalciferol [Vitamin D3 (25 Mcg = 1000 Iu)] 25 mcg PO DAILY 30 Days #30 t ablet Zinc Sulfate [Orazinc] 220 mg PO DAILY 30 Days #30 cap Pantoprazole [Protonix] 40 mg PO AC-BRKFST 30 Days #30 tablet. Continue Ibuprofen [Motrin Ib] 400 mg PO Q8H PRN PRN Reason: Fever Discontinued Acetaminophen Tab [Tylenol] 650 mg PO Q4H PRN PRN Reason: Fever And/ Or Pain Discharge Medication List Ibuprofen [Motrin Ib] 400 mg PO Q8H PRN 12/10/20 [History] Acetaminophen Tab [Tylenol] 650 mg PO Q6HR PRN #30 tab 12/20/20 [Rx] Albuterol Inhaler [Ventolin Hfa Inhaler] 2 puff INHALATION RT-Q6H PRN 30 Days #1 puff 12/20/20 [Rx] Ascorbic Acid [Vitamin C] 1,000 mg PO DAILY 30 Days #60 tab 12/20/20 [Rx] Cholecalciferol [Vitamin D3 (25 Mcg = 1000 Iu)] 25 mcg PO DAILY 30 Days #30 tablet 12/20/20 [Rx] Pantoprazole [Protonix] 40 mg PO AC-BRKFST 30 Days #30 tablet. 12/20/20 [Rx] Zinc Sulfate [Orazinc] 220 mg PO DAILY 30 Days #30 cap 12/20/20 [Rx] metFORMIN HCL 500 mg PO BID 30 Days #60 tablet 12/20/20 [Rx] predniSONE 10 mg PO DIRECTED #10 tab 12/20/20 [Rx] Follow up Appointment(s)/Referral(s): Ericka Owens MD [STAFF PHYSICIAN] - 01/19/21 1:00 pm [facility] [NON-STAFF] - As Needed (oxygen) Jelly Osborne DO [Primary Care Provider] - 1-2 days (office closed at time of discharge. please call to make appointment ) Patient Instructions/Handouts: Coronavirus Disease 2019 (COVID-19) Activity/Diet/Wound Care/Special Instructions: Patient will require home oxygen at 2 L secondary to Covid 19 as room air oxygenation was 87% activity Limited until follow-up Follow-up with primary care provider upon discharge Continue with metformin twice daily until follow-up with primary care provider to discuss further treatment plan Hemoglobin A1c was 7.9 and will likely need a glucometer for testing and discuss with primary care provider Continue with oxygen for now and titrate as tolerated and follow up with pulmonary in a few weeks continue consistent carb diet Continue with prednisone taper for the next few days until finished Encouraged fluids and rest Monitor for fever and treat with Tylenol and/or Motrin continue Incentive spirometer at least 10 times every hour while awake Discharge Disposition: HOME SELF-CARE
== END 2020-12-20 14:57 | disposition home or self-care (01) | DRG 177 ==
LOC: EC 09:30 → 4SSUR 11:43
PROVIDERS: ADMIT Internal Medicine; ATTEND Internal Medicine
PROC: XW033E5 Introduction of Remdesivir Anti-infective into Peripheral Vein, Percutaneous Approach, New Technology Group 5 (ICD-10-PCS; principal; 2020-12-12)
PROC: 5A0945A Assistance with Respiratory Ventilation, 24-96 Consecutive Hours, High Flow/Velocity Cannula (ICD-10-PCS; 2020-12-13)
DX: U07.1 COVID-19 (principal); J12.82 Pneumonia due to coronavirus disease 2019; J96.01 Acute respiratory failure with hypoxia; E78.5 Hyperlipidemia, unspecified; J06.9 Acute upper respiratory infection, unspecified; D72.810 Lymphocytopenia; Z82.49 Family history of ischemic heart disease and other diseases of the circulatory system; Z82.5 Family history of asthma and other chronic lower respiratory diseases; Z68.35 Body mass index [BMI] 35.0-35.9, adult; E66.9 Obesity, unspecified; E11.65 Type 2 diabetes mellitus with hyperglycemia; T38.0X5A Adverse effect of glucocorticoids and synthetic analogues, initial encounter; Z79.52 Long term (current) use of systemic steroids; I10 Essential (primary) hypertension
CPT/HCPCS: 36415; 71045; 71275; 80053; 82728; 83036; 83605; 83615; 83735; 84145; 85025; 85379; 85610; 85730; 86140; 87040; 93005; 94640; 94760; 96361; 96374; 96375; 99285